=== PATIENT | male | born 1945 | race Caucasian/White ===

== ENCOUNTER → 2016-03-26 | Outpatient (CLI) | payer MEDICARE, BC ==
--- NOTE | 2016-03-26 15:10 | XR ---
EXAMINATION TYPE: XR chest 2V DATE OF EXAM: 03/26/2016 1:26 PM COMPARISON: NONE HISTORY: Preop TECHNIQUE: Frontal and lateral views of the chest are obtained. FINDINGS: There is no focal air space opacity, pleural effusion, or pneumothorax seen. The cardiac silhouette size is within normal limits. There is a slight spinal curvature. An azygos lobe is note d incidentally. The osseous structures are intact. IMPRESSION: No acute cardiopulmonary process.
== END | disposition home or self-care (01) ==
LOC: RADXRMAIN 13:13
PROVIDERS: ATTEND Family Medicine
DX: Z01.818 Encounter for other preprocedural examination (principal)
CPT/HCPCS: 71020

== ENCOUNTER 2017-12-22 05:36 | Inpatient (IN) | payer BC, MEDICARE ==
[2017-12-22] MEDS ORDERED: ONDANSETRON 4 MG/2 ML VIAL IVP STA (05:53)
[2017-12-22] MEDS ORDERED: MORPHINE SULFATE 4 MG/ML SYRINGE IV STA (06:00)
--- NOTE | 2017-12-22 06:04 | ED ---
Abdominal Pain HPI - General Chief Complaint: Abdominal Pain Stated Complaint: ABD/BACK PAIN Time Seen by Provider: 12/22/17 05:52 Source: patient, family Mode of arrival: wheelchair Limitations: no limitations - History of Present Illness Initial Comments: This patient is a 72-year-old man who presents to be evaluated for what he believes is food poisoning. He describes starting arrival 11 PM, the onset of abdominal pain that he describes as cramping and aching, constant, severe. He is also having some nausea. He believes that this is related to having eaten what he felt was a bad hamburger. MD Complaint: abdominal pain Onset/Timin -: hour(s) Location: diffuse Radiation: none Migration to: no migration Severity: severe Quality: cramping, aching Consistency: constant Improves With: nothing Worsens With: nothing Associated Symptoms: nausea - Related Data Home Medications Medication Instructions Recorded Confirmed Amiodarone [Cordarone] 200 mg PO DAILY 12/22/17 12/22/17 Apixaban [Eliquis] 5 mg PO BID 12/22/17 12/22/17 Atorvastatin [Lipitor] 40 mg PO HS 12/22/17 12/22/17 Docusate Sodium [Dok] 100 mg PO BID PRN 12/22/17 12/22/17 Finasteride [Proscar] 5 mg PO DAILY 12/22/17 12/22/17 Hydrocodone/Acetaminophen [[place] 1 tab PO Q3HR PRN 12/22/17 12/22/17 5-325] Ibuprofen 600 mg PO Q8H PRN 12/22/17 12/22/17 L.acidoph,Paracasei, B.lactis 1 cap PO DAILY 12/22/17 12/22/17 [Probiotic] Lisinopril [Zestril] 5 mg PO DAILY 12/22/17 12/22/17 Metoprolol Succinate (ER) [Toprol 25 mg PO DAILY 12/22/17 12/22/17 Xl] Multivitamin,Therapeutic [Thera] 1 tab PO DAILY 12/22/17 12/22/17 Omeprazole 40 mg PO DAILY 12/22/17 12/22/17 Tamsulosin [Flomax] 0.4 mg PO DAILY 12/22/17 12/22/17 Allergies Allergy/AdvReac Type Severity Reaction Status Date / Time adhesive tape Allergy Rash/Hives Verified 12/22/17 08:07 hydromorphone [From Dilaudid] AdvReac Confusion Verified 12/22/17 08:07 Review of Systems ROS Statement: Those systems with pertinent positive or pertinent negative responses have been documented in the HPI. ROS Other: All systems not noted in ROS Statement are negative. Constitutional: Denies: fever, chills Respiratory: Denies: cough, dyspnea Cardiovascular: Denies: chest pain, palpitations, orthopnea, edema, syncope Gastrointestinal: Reports: abdominal pain, nausea. Denies: vomiting, diarrhea, constipation, melena, hematochezia Genitourinary: Denies: dysuria, hematuria, testicular pain Musculoskeletal: Denies: back pain Skin: Denies: rash Neurological: Denies: weakness, numbness Past Medical History Past Medical History: GERD/Reflux, Hyperlipidemia, Prostate Disorder History of Any Multi-Drug Resistant Organisms: None Reported Past Surgical History: Back Surgery, Tonsillectomy Additional Past Surgical History / Comment(s): valve replacement, removal of ear cancer Past Psychological History: No Psychological Hx Reported Smoking Status: Never smoker Past Alcohol Use History: Rare Past Drug Use History: None Reported - Past Family History Mother Family Medical History: COPD Additional Family Medical History / Comment(s): Mother from COPD at the age of 78yrs. Father History Unknown: Yes Additional Family Medical History / Comment(s): Patient does not know any history on his father. Brother(s) Additional Family Medical History / Comment(s): patient has 2 brothers. One brother had 4 vessel CABG. One brother has history of melanoma and gallbladder disease. Patient has one sister with history of gallbladder disease. Patient is 5 children with no major medical problems. General Exam Limitations: no limitations General appearance: alert, in distress Head exam: Present: atraumatic, normocephalic Eye exam: Present: normal appearance. Absent: scleral icterus, conjunctival injection ENT exam: Present: mucous membranes dry Respiratory exam: Present: normal lung sounds bilaterally. Absent: respiratory distress, wheezes, rales, rhonchi, stridor Cardiovascular Exam: Present: regular rate, normal rhythm, normal heart sounds. Absent: systolic murmur, diastolic murmur, rubs, gallop GI/Abdominal exam: Present: distended, tenderness, diminished bowel sounds. Absent: guarding, rebound, rigid, mass, pulsatile mass, hernia Extremities exam: Present: normal inspection, normal capillary refill. Absent: pedal edema, calf tenderness Back exam: Present: normal inspection. Absent: CVA tenderness (R), CVA tenderness (L) Neurological exam: Present: alert Skin exam: Present: warm, dry, intact, normal color. Absent: rash Course Vital Signs 12/22/17 12/22/17 12/22/17 05:38 06:23 07:30 Temperature 98.3 F Pulse Rate 96 105 H 123 H Respiratory 18 16 24 Rate Blood Pressure 105/65 74/51 O2 Sat by Pulse 97 91 L Oximetry 12/22/17 12/22/17 12/22/17 08:00 08:50 08:55 Temperature Pulse Rate 111 H 116 H Respiratory 20 18 Rate Blood Pressure 110/60 94/55 100/61 O2 Sat by Pulse 95 97 Oximetry Medical Decision Making - Lab Data Result diagrams: 12/25/17 07:20 12/25/17 07:20 Lab Results 12/22/17 12/22/17 12/22/17 Range/Units 05:56 05:56 05:56 WBC 8.1 (3.8-10.6) k/uL RBC 3.90 L (4.30-5.90) m/uL Hgb 12.3 L (13.0-17.5) gm/dL Hct 39.2 (39.0-53.0) % MCV 100.6 H (80.0-100.0) fL MCH 31.5 (25.0-35.0) pg MCHC 31.3 (31.0-37.0) g/dL RDW 14.4 (11.5-15.5) % Plt Count 273 (150-450) k/uL Neutrophils % 86 % Lymphocytes % 11 % Monocytes % 2 % Eosinophils % 1 % Basophils % 0 % Neutrophils # 6.9 (1.3-7.7) k/uL Lymphocytes # 0.9 L (1.0-4.8) k/uL Monocytes # 0.1 (0-1.0) k/uL Eosinophils # 0.1 (0-0.7) k/uL Basophils # 0.0 (0-0.2) k/uL Hypochromasia Slight Macrocytosis Slight Sodium 139 (137-145) mmol/L Potassium 3.9 (3.5-5.1) mmol/L Chloride 101 (98-107) mmol/L Carbon Dioxide 27 (22-30) mmol/L Anion Gap 11 mmol/L BUN 15 (9-20) mg/dL Creatinine 0.83 (0.66-1.25) mg/dL Est GFR (CKD-EPI)AfAm >90 (>60 ml/min/1.73 sqM) Est GFR (CKD-EPI)NonAf 87 (>60 ml/min/1.73 sqM) Glucose 227 H (74-99) mg/dL Lactic Ac Sepsis Rflx Plasma Lactic Acid Parveen 3.3 H* (0.7-2.0) mmol/L Calcium 9.3 (8.4-10.2) mg/dL Total Bilirubin 0.8 (0.2-1.3) mg/dL AST 311 H (17-59) U/L ALT 151 H (21-72) U/L Alkaline Phosphatase 221 H (38-126) U/L Troponin I (0.000-0.034) ng/mL Total Protein 7.8 (6.3-8.2) g/dL Albumin 4.1 (3.5-5.0) g/dL Amylase 108 (30-110) U/L Lipase 828 H (23-300) U/L Urine Color Urine Appearance (Clear) Urine pH (5.0-8.0) Ur Specific [place] (1.001-1.035) Urine Protein (Negative) Urine Glucose (UA) (Negative) Urine Ketones (Negative) Urine Blood (Negative) Urine Nitrite (Negative) Urine Bilirubin (Negative) Urine Urobilinogen (<2.0) mg/dL Ur Leukocyte Esterase (Negative) Urine RBC (0-5) /hpf Urine WBC (0-5) /hpf Urine WBC Clumps (None) /hpf Urine Mucus (None) /hpf 12/22/17 12/22/17 12/22/17 Range/Units 05:56 06:44 08:40 WBC (3.8-10.6) k/uL RBC (4.30-5.90) m/uL Hgb (13.0-17.5) gm/dL Hct (39.0-53.0) % MCV (80.0-100.0) fL MCH (25.0-35.0) pg MCHC (31.0-37.0) g/dL RDW (11.5-15.5) % Plt Count (150-450) k/uL Neutrophils % % Lymphocytes % % Monocytes % % Eosinophils % % Basophils % % Neutrophils # (1.3-7.7) k/uL Lymphocytes # (1.0-4.8) k/uL Monocytes # (0-1.0) k/uL Eosinophils # (0-0.7) k/uL Basophils # (0-0.2) k/uL Hypochromasia Macrocytosis Sodium (137-145) mmol/L Potassium (3.5-5.1) mmol/L Chloride (98-107) mmol/L Carbon Dioxide (22-30) mmol/L Anion Gap mmol/L BUN (9-20) mg/dL Creatinine (0.66-1.25) mg/dL Est GFR (CKD-EPI)AfAm (>60 ml/min/1.73 sqM) Est GFR (CKD-EPI)NonAf (>60 ml/min/1.73 sqM) Glucose (74-99) mg/dL Lactic Ac Sepsis Rflx Y Plasma Lactic Acid Parveen (0.7-2.0) mmol/L Calcium (8.4-10.2) mg/dL Total Bilirubin (0.2-1.3) mg/dL AST (17-59) U/L ALT (21-72) U/L Alkaline Phosphatase (38-126) U/L Troponin I <0.012 (0.000-0.034) ng/mL Total Protein (6.3-8.2) g/dL Albumin (3.5-5.0) g/dL Amylase (30-110) U/L Lipase (23-300) U/L Urine Color Yellow Urine Appearance Cloudy (Clear) Urine pH 5.5 (5.0-8.0) Ur Specific [place] 1.018 (1.001-1.035) Urine Protein Trace H (Negative) Urine Glucose (UA) Negative (Negative) Urine Ketones Negative (Negative) Urine Blood Negative (Negative) Urine Nitrite Negative (Negative) Urine Bilirubin Negative (Negative) Urine Urobilinogen <2.0 (<2.0) mg/dL Ur Leukocyte Esterase Trace H (Negative) Urine RBC 3 (0-5) /hpf Urine WBC 8 H (0-5) /hpf Urine WBC Clumps Rare H (None) /hpf Urine Mucus Few H (None) /hpf - EKG Data -: EKG Interpreted by Me Interpretation: other (Paced rhythm) Disposition Clinical Impression: Abdominal pain, Pancreatitis, Cholecystitis Disposition: ADMITTED IP TO THIS HOSP Condition: Stable
[2017-12-22 06:25] LABS: Basophils % (A) 0 %; Eosinophils # (A) 0.1 k/uL (0-0.7); Eosinophils % (A) 1 %; HCT 39.2 % (39.0-53.0); HGB 12.3 gm/dL (13.0-17.5); Hypochromasia Slight; Lymphocytes # (A) 0.9 k/uL (1.0-4.8); Lymphocytes % (A) 11 %; MCH 31.5 pg (25.0-35.0); MCHC 31.3 g/dL (31.0-37.0); MCV 100.6 fL (80.0-100.0); Macrocytosis Slight; Monocytes # (A) 0.1 k/uL (0-1.0); Monocytes % (A) 2 %; Neutrophils # (A) 6.9 k/uL (1.3-7.7); Neutrophils % (A) 86 %; Platelet Count 273 k/uL (150-450); RDW 14.4 % (11.5-15.5); WBC 8.1 k/uL (3.8-10.6)
[2017-12-22 06:35] LABS: ALT 151 U/L (21-72); AST 311 U/L (17-59); Albumin 4.1 g/dL (3.5-5.0); Alkaline Phosphatase 221 U/L (38-126); Blood Urea Nitrogen 15 mg/dL (9-20); Calcium 9.3 mg/dL (8.4-10.2); Chloride 101 mmol/L (98-107); Glucose 227 mg/dL (74-99); Lipase 828 U/L (23-300); Potassium 3.9 mmol/L (3.5-5.1); Sodium 139 mmol/L (137-145); Total Bilirubin 0.8 mg/dL (0.2-1.3)
[2017-12-22 06:37] LABS: Amylase 108 U/L (30-110); Anion Gap 11 mmol/L; Carbon Dioxide 27 mmol/L (22-30); Total Protein 7.8 g/dL (6.3-8.2)
[2017-12-22] MEDS ORDERED: SODIUM CHLORIDE 0.9% 1,000 ML IV STA (07:27)
[2017-12-22] MEDS ORDERED: ONDANSETRON 4 MG/2 ML VIAL IVP PRN (07:52)
[2017-12-22] MEDS ORDERED: NALOXONE 0.4 MG/ML 1 ML VIAL IV PRN (07:52)
[2017-12-22] MEDS ORDERED: DOCUSATE 100 MG CAP PO PRN (07:54)
[2017-12-22] MEDS ORDERED: SODIUM CHLORIDE 0.9% 1,000 ML IV SCH (08:00)
[2017-12-22] MEDS ORDERED: AMPICILLIN-SULBACTAM 3 GM in SODIUM CHLORIDE 0.9% 100 ML IVPB STA (08:01)
--- NOTE | 2017-12-22 08:01 | XR ---
EXAMINATION TYPE: XR abdomen acute w cxr DATE OF EXAM: 12/22/2017 COMPARISON: NONE HISTORY: Pain TECHNIQUE: Single view of the chest and 2 views of the abdomen are submitted. FINDINGS: Single view of the chest fails demonstrate evidence for acute pulmonary disease. Scattered senescent parenchymal changes noted. Pacer device in place. There is no evidence for pneumoperitoneum. The bowel gas pattern is unremarkable as there is air throughout nondilated small and large bowel. No sizeable air fluid levels.No mass effects are seen. No unusual calcifications. IMPRESSION: 1. Unremarkable study.
--- NOTE | 2017-12-22 08:47 | US ---
EXAMINATION TYPE: US abdomen limited DATE OF EXAM: 12/22/2017 COMPARISON: NONE CLINICAL HISTORY: attention RUQ. epigastric pain, nausea EXAM MEASUREMENTS: Liver Length: 16.0 cm Gallbladder Wall: 0.5 cm CBD: 0.5 cm Right Kidney: 11.3 x 5.4 x 5.1 cm Technical limitations due to large amount of overlying bowel content Pancreas: Obscured by bowel gas Liver: best visualized intercostally, heterogeneous, hypoechoic area adjacent to GB = 5.1cm ??possib le focal sparing Gallbladder: multiple stones, thickened GB wall Evidence for sonographic Antonio's sign: no CBD: appears wnl Right Kidney: no evidence of hydronephrosis IMPRESSION: 1. Fatty liver with focal fatty sparing. 2. Cholelithiasis with thickened gallbladder wall. No evidence for pericholecystic fluid.
[2017-12-22] MEDS ORDERED: PANTOPRAZOLE 40 MG TABLET PO SCH (09:00)
[2017-12-22] MEDS ORDERED: APIXABAN 5 MG TAB PO SCH (09:00)
[2017-12-22 10:08] LABS: Appearance,Urine Cloudy (Clear); Bilirubin,Urine Negative (Negative); Blood,Urine Negative (Negative); Color,Urine Yellow; Glucose,Urine (UA) Negative (Negative); Ketones,Urine Negative (Negative); Leukocyte Esterase,Urine Trace (Negative); Mucus,Urine Few /hpf; Nitrite,Urine Negative (Negative); PH, Urine 5.5 (5.0-8.0); Protein,Urine Trace (Negative); RBC,Urine 3 /hpf (0-5); Specific Gravity,Urine 1.018 (1.001-1.035); Urobilinogen,Urine <2.0 mg/dL (<2.0); WBC,Urine 8 /hpf (0-5)
[2017-12-22] MEDS ORDERED: HEPARIN SODIUM,PORCINE 5,000 UNIT/ML 1 ML VIAL IV PRN (10:21)
[2017-12-22] MEDS ORDERED: SODIUM CHLORIDE 0.9% 1,000 ML IV ONE ×2 (10:37→11:00)
[2017-12-22] MEDS: HEPARIN SOD,PORK IN 0.45% NACL 25,000 UNIT in 0.45% NACL 1 500ML.BAG IV SCH (11:00)
[2017-12-22] MEDS: MORPHINE SULFATE 4 MG/ML SYRINGE IVP PRN ×4 (11:02→22:56)
[2017-12-22] MEDS: METOPROLOL SUCCINATE (ER) 25 MG TAB.ER.24H PO SCH (11:14)
[2017-12-22] MEDS: FINASTERIDE 5 MG TAB PO SCH (11:14)
[2017-12-22] MEDS: AMIODARONE 200 MG TAB PO SCH (11:14)
[2017-12-22] MEDS: TAMSULOSIN 0.4 MG CAP.ER.24H PO SCH (11:15)
[2017-12-22] MEDS: LISINOPRIL 5 MG TAB PO SCH (11:15)
[2017-12-22 11:22] LABS: INR 1.1 (<1.2); Partial Thromboplastin Time 23.6 sec (22.0-30.0); Prothrombin Time 10.7 sec (9.0-12.0)
[2017-12-22 11:27] LABS: Basophils % (A) 0 %; Eosinophils % (A) 0 %; HCT 35.7 % (39.0-53.0); HGB 11.3 gm/dL (13.0-17.5); Hypochromasia Slight; Lymphocytes # (A) 0.2 k/uL (1.0-4.8); Lymphocytes % (A) 2 %; MCH 31.8 pg (25.0-35.0); MCHC 31.8 g/dL (31.0-37.0); MCV 100.2 fL (80.0-100.0); Macrocytosis Slight; Mean Platelet Volume 7.3; Monocytes # (A) 0.5 k/uL (0-1.0); Monocytes % (A) 5 %; Neutrophils # (A) 9.5 k/uL (1.3-7.7); Neutrophils % (A) 92 %; Platelet Count 223 k/uL (150-450); RBC 3.56 m/uL (4.30-5.90); RDW 14.4 % (11.5-15.5); WBC 10.3 k/uL (3.8-10.6)
[2017-12-22] MEDS: LACTATED RINGERS 1,000 ML IV SCH ×4 (11:30→23:23)
--- NOTE | 2017-12-22 13:55 | P.CRDCN ---
History of Present Illness History of present illness: Mr. Vicente is a pleasant 72-year-old male past medical history significant for paroxysmal atrial fibrillation on terminal worker anticoagulaiton with eliquis, recent prosthetic aortic valve replacement 12/[address] Shah at [facility], recent pacemaker/AICD implantation secondary to sick sinus syndrome and cardiomyopathy, dyslipidemia and non-ischemic cardiomyopathy with EF 30-35% prior to valve replacement surgery. He follows with Dr. Bonilla out of [place]. We have been asked to see him in consultation on this admission due to recent valve replacement. He presented to the hospital early this morning with symptoms of abdominal and chest pain with nausea and vomiting after eating a hamburger last night. He denies shortness of breath, dizziness, palpitations, diaphoresis, PND or orhopnea. EKG indicates paced rhythm with underlying sinus mechanism. Abdominal ultrasound reveals evidence of cholelithiasis with thickened gallbladder wall. Laboratory data reviewed, hgb 11.3, plt 223, sodium 139, potassium 3.9, creatinine 0.83, AST 311, ALT 151, alk phos 221, lipase 828, cardiac enzymes negative x1 and lactic acid 2.2 down from 3.3 on admission. Blood pressure have been low 74/51-100/61. Heart rates ranging from 105-123. Current cardiac medications include toprol 25 mg daily, lisinopril 5 mg daily, atorvastatin 40 mg daily, eliquis 5 mg BID and amiodarone 200 mg daily. He has been started on heparin infusion for anticoagulation and eliquis has been held. Last dose was last night. He states he underwent cardiac catherization prior to his valve replacement and was told he had no blockages. Records are currently being requested. Review of Systems At the time of my exam: CONSTITUTIONAL: Denies fever. Denies chills. EYES: Denies blurred vision. Denies vision changes. Denies eye pain. EARS, NOSE, MOUTH & THROAT: Denies headache. Denies sore throat. Denies ear pain. CARDIOVASCULAR: Denies chest pain. Denies shortness of breath. Denies orthopnea. Denies PND. Denies palpitations. RESPIRATORY: Denies cough. GASTROINTESTINAL: Complains of abdominal pain. Denies diarrhea. Denies constipation. Complains of nausea. Denies vomiting. MUSCULOSKELETAL: Denies myalgias. INTEGUMENTARY: Denies pruitis. Denies rash. NEUROLOGIC: Denies numbness. Denies tingling. Denies weakness. PSYCHIATRIC: Denies anxiety. Denies depression. ENDOCRINE: Denies fatigue. Denies weight change. Denies polydipsia. Denies polyurina. GENITOURINARY: Denies burning, hematuria or urgency with micturation. HEMATOLOGIC: Denies history of anemia. Denies bleeding. Past Medical History Past Medical History: Atrial Fibrillation, Cancer, GERD/Reflux, Hyperlipidemia, Pneumonia, Prostate Disorder Additional Past Medical History / Comment(s): Pt states he was placed on new medications including blood pressure meds after his recent heart valve surgery but does not know if he has truley been hypertensive, he states d/t his valve disease his heart had to pump to hard/became "weak" and that he recently had an AICD/pacer inserted, chronic low back pain/better since back surgery, ear cancer removed, PLEASE USE PAPER TAPE AND IF POSSIBLE HYPOALLERGENIC ECG ELECTRODES. History of Any Multi-Drug Resistant Organisms: None Reported Past Surgical History: AICD, Back Surgery, Cardiac Valve Replacement, Pacemaker , Tonsillectomy Additional Past Surgical History / Comment(s): 11/10/17 AICD/pacer at [place], Aortic valve replacement, L4L5 with titanium cage/screws/plates, R ear cancer removal. Past Anesthesia/Blood Transfusion Reactions: No Reported Reaction Type of Cardiac Device: Permanent Pacemaker, AICD Device Placement Date:: 11/10/17 Smoking Status: Never smoker - Past Family History Mother Family Medical History: COPD Additional Family Medical History / Comment(s): Mother from COPD at the age of 78yrs. Father History Unknown: Yes Medications and Allergies Home Medications Medication Instructions Recorded Confirmed Type Amiodarone [Cordarone] 200 mg PO DAILY 12/22/17 12/22/17 History Apixaban [Eliquis] 5 mg PO BID 12/22/17 12/22/17 History Atorvastatin [Lipitor] 40 mg PO HS 12/22/17 12/22/17 History Docusate Sodium [Dok] 100 mg PO BID PRN 12/22/17 12/22/17 History Finasteride [Proscar] 5 mg PO DAILY 12/22/17 12/22/17 History Hydrocodone/Acetaminophen [[place] 1 tab PO Q3HR PRN 12/22/17 12/22/17 History 5-325] Ibuprofen 600 mg PO Q8H PRN 12/22/17 12/22/17 History L.acidoph,Paracasei, B.lactis 1 cap PO DAILY 12/22/17 12/22/17 History [Probiotic] Lisinopril [Zestril] 5 mg PO DAILY 12/22/17 12/22/17 History Metoprolol Succinate (ER) [Toprol 25 mg PO DAILY 12/22/17 12/22/17 History Xl] Multivitamin,Therapeutic [Thera] 1 tab PO DAILY 12/22/17 12/22/17 History Omeprazole 40 mg PO DAILY 12/22/17 12/22/17 History Tamsulosin [Flomax] 0.4 mg PO DAILY 12/22/17 12/22/17 History Allergies Allergy/AdvReac Type Severity Reaction Status Date / Time adhesive tape Allergy Rash/Hives Verified 12/22/17 08:07 hydromorphone [From Dilaudid] AdvReac Confusion Verified 12/22/17 08:07 Physical Exam Vitals: Vital Signs Temp Pulse Pulse Resp BP BP BP 12/22/17 11:57 99.3 F 105 H 18 87/52 86/56 12/22/17 09:34 98.4 F 107 H 20 120/68 12/22/17 08:55 100/61 12/22/17 08:50 116 H 18 94/55 12/22/17 08:00 111 H 20 110/60 12/22/17 07:30 123 H 24 74/51 12/22/17 06:23 105 H 16 12/22/17 05:38 98.3 F 96 18 105/65 Pulse Ox 12/22/17 11:57 96 12/22/17 09:34 97 12/22/17 08:55 12/22/17 08:50 97 12/22/17 08:00 95 12/22/17 07:30 91 L 12/22/17 06:23 12/22/17 05:38 97 Intake and Output 12/21/17 12/22/17 12/22/17 22:59 06:59 14:59 Other: Weight 81.647 kg Blood pressure 91/50 heart rate 105 afebrile maintaining oxygen saturation on nasal cannula GENERAL: This is a 72-year-old male in no apparent distress at the time of my examination. HEENT: Head is atraumatic, normocephalic. Pupils are equal, round. Sclerae anicteric. Conjunctivae are clear. Mucous membranes of the mouth are moist. Neck is supple. There is no jugular venous distention. No carotid bruit is heard. LUNGS: Faint bibasliar rales. No wheezes or rhonchi. No chest wall tenderness is noted on palpation or with deep breathing. Diminished bilaterally. HEART: Regular rate and rhythm without murmurs, rubs or gallops. S1 and S2 heard. Mid-sternal chest wound clean, dry and intact with no redness, swelling or drainage. Pacemaker site clean, dry and intact with no redness, swelling or drainage. ABDOMEN: Soft, mildly tender and guarded. Bowel sounds are heard. No organomegaly noted. Pt received morphine just prior to my exam. EXTREMITIES: No evidence of peripheral edema and no calf tenderness noted. VASCULAR: Radial and dorsalis pedis pulses palpated, no evidence of clubbing. NEUROLOGIC: Patient is awake, alert and oriented x3. Results 12/22/17 10:50 12/22/17 05:56 Cardiac Enzymes 12/22/17 12/22/17 Range/Units 05:56 05:56 AST 311 H (17-59) U/L Troponin I <0.012 (0.000-0.034) ng/mL Coagulation 12/22/17 Range/Units 10:50 PT 10.7 (9.0-12.0) sec APTT 23.6 (22.0-30.0) sec CBC 12/22/17 12/22/17 Range/Units 05:56 10:50 WBC 8.1 10.3 (3.8-10.6) k/uL RBC 3.90 L 3.56 L (4.30-5.90) m/uL Hgb 12.3 L 11.3 L (13.0-17.5) gm/dL Hct 39.2 35.7 L (39.0-53.0) % Plt Count 273 223 (150-450) k/uL Comprehensive Metabolic Panel 12/22/17 Range/Units 05:56 Sodium 139 (137-145) mmol/L Potassium 3.9 (3.5-5.1) mmol/L Chloride 101 (98-107) mmol/L Carbon Dioxide 27 (22-30) mmol/L BUN 15 (9-20) mg/dL Creatinine 0.83 (0.66-1.25) mg/dL Glucose 227 H (74-99) mg/dL Calcium 9.3 (8.4-10.2) mg/dL AST 311 H (17-59) U/L ALT 151 H (21-72) U/L Alkaline Phosphatase 221 H (38-126) U/L Total Protein 7.8 (6.3-8.2) g/dL Albumin 4.1 (3.5-5.0) g/dL Current Medications Generic Name Dose Route Start Last Admin Trade Name Freq PRN Reason Stop Dose Admin Hydrocodone Bitart/Acetaminophen 1 each 12/22/17 07:54 [place] 5-325 PO Q3HR PRN Pain Amiodarone HCl 200 mg 12/22/17 09:00 12/22/17 11:14 Cordarone PO 200 mg DAILY LEILANI Administration Docusate Sodium 100 mg 12/22/17 07:54 [place] PO BID PRN Constipation Finasteride 5 mg 12/22/17 09:00 12/22/17 11:14 Proscar PO 5 mg DAILY LEILANI Administration Heparin Sodium (Porcine) 0 unit 12/22/17 10:21 Heparin IV PER PROTOCOL PRN Low PTT Protocol Heparin Sodium/Sodium Chloride 500 mls @ 29.39 mls/hr 12/22/17 10:30 11:00 25,000 unit/ Sodium Chloride IV 18 units/kg/hr .Q17H1M LEILANI 29.39 mls/hr Administration Protocol 18 UNITS/KG/HR Lactated Ringer's 1,000 mls @ 250 mls/hr 12/22/17 10:45 12/22/17 11:30 Lactated Ringers IV 250 mls/hr .Q4H LEILANI Administration Lisinopril 5 mg 12/22/17 09:00 12/22/17 11:15 Zestril PO 5 mg DAILY LEILANI Administration Metoprolol Succinate 25 mg 12/22/17 09:00 12/22/17 11:14 Toprol Xl PO 25 mg DAILY LEILANI Administration Morphine Sulfate 4 mg 12/22/17 10:35 12/22/17 11:02 Morphine Sulfate (Inj) IVP 4 mg Q4HR PRN Administration Pain Naloxone HCl 0.2 mg 12/22/17 07:52 Narcan IV Q2M PRN Opioid Reversal Ondansetron HCl 4 mg 12/22/17 07:52 Zofran IVP Q8HR PRN Nausea And Vomiting Pantoprazole Sodium 40 mg 12/22/17 09:00 12/22/17 11:15 Protonix PO 40 mg [id number] LEILANI Administration Tamsulosin HCl 0.4 mg 12/22/17 09:00 12/22/17 11:15 Flomax PO 0.4 mg DAILY LEILANI Administration Intake and Output 12/21/17 12/22/17 12/22/17 22:59 06:59 14:59 Other: Weight 81.647 kg 12/22/17 10:50 12/22/17 05:56 Assessment and Plan Assessment: ASSESSMENT Acute cholecystitis Hypotension Recent aortic prosthetic aortic valve replacement for severe aortic stenosis Recent AICD/pacemaker insertion Non-ischemic cardiomyopathy, last documented EF 30-35% 10/02/2017 Lactic acidosis Paroxysmal atrial fibrillation currently maintaining sinus mechanism on terminal worker anticoagulation with Eliquis Dyslipidemia PLAN Eliquis has been held per primary care team for possible surgical intervention. Heparin infusion has been initiated as well by primary care to team for ongoing thromboembolic protection. Parameters have been added to toprol to hold for systolic blood pressure less than 90. Baseline chest xray shows no sign of effusion or infiltrate. Cautious fluid administration secondary to poor LV systolic function. Further recommendations to follow based on clinical course. Thank you kindly for this consultation. Nurse Practitioner note has been reviewed, I agree with a documented findings and plan of care. Patient was seen and examined.
--- NOTE | 2017-12-22 16:40 | P.HPIM ---
History of Present Illness H&P Date: 12/22/17 Chief Complaint: Abdominal pain This is a 72-year-old male patient of Dr. Preciado with past mental history of gastroesophageal reflux disease, paroxysmal atrial fibrillation on eliquis, nonischemic cardiomyopathy with EF of 30-35%, hyperlipidemia, enlarged prostate, aortic valve stenosis with recent aortic valve replacement done on December 04, pacemaker/AICD on December 11 , hypertension. Patient and family gives history that on December 04 he underwent open heart surgery for aortic valve replacement done by Dr. Shah and 7 days later on December 11 he underwent a pacemaker/AICD placement with Dr. Flaherty for sick sinus syndrome and cardiomyopathy.. He states he had onset of abdominal pain with cramping aching type that was constant and severe along with nausea. This started at 9 PM yesterday and was in the epigastric area. He was having dry heaves but no actual vomiting. He denies diarrhea. He denies any chest pain or shortness of breath, no palpitations. The pain became so severe by 5 in the morning he called his kids and he was brought into [facility] emergency center for evaluation. Abdominal x-ray was unremarkable. Abdominal ultrasound shows fatty liver with focal fatty sparing. Cholelithiasis with thickened gallbladder wall. No evidence of. Cholecystic fluid. White count was normal, blood sugar 227, initial lactic acid 3.3 followed by 2.2, lipase was elevated at 828 as well as liver function tests were elevated. Patient was admitted to the Medr floor. Eliquis has been placed on hold and patient started on heparin drip for possible surgical intervention. Patient is been seen and followed by cardiology. Review of Systems All systems: negative Constitutional: Reports poor appetite, Denies chills, Denies fatigue, Denies fever, Denies lethargy, Denies malaise, Denies weakness, Denies weight loss Eyes: denies blurred vision, denies pain Ears, nose, mouth and throat: Denies dysphagia, Denies headache, Denies hoarseness, Denies sore throat, Denies vertigo Cardiovascular: Denies chest pain, Denies decreased exercise tolerance, Denies dyspnea on exertion, Denies shortness of breath Respiratory: Denies congestion, Denies cough, Denies cough with sputum, Denies dyspnea, Denies excessive sputum, Denies hemoptysis, Denies home oxygen, Denies wheezing Gastrointestinal: Reports loss of appetite, Reports nausea, Denies abdominal pain, Denies diarrhea, Denies vomiting Genitourinary: Denies dysuria, Denies urinary frequency Musculoskeletal: Denies frequent falls, Denies gait dysfunction, Denies myalgias Integumentary: Denies pruritus, Denies rash Neurological: Denies change in speech, Denies confusion, Denies numbness, Denies weakness Psychiatric: Denies anxiety, Denies depression Endocrine: Denies fatigue, Denies weight change Past Medical History Past Medical History: Atrial Fibrillation, Cancer, GERD/Reflux, Hyperlipidemia, Pneumonia, Prostate Disorder Additional Past Medical History / Comment(s): Aortic valve stenosis status post aortic valve replacement, AICD/pacer inserted, chronic low back pain/better since back surgery, ear cancer removed, PLEASE USE PAPER TAPE AND IF POSSIBLE HYPOALLERGENIC ECG ELECTRODES. History of Any Multi-Drug Resistant Organisms: None Reported Past Surgical History: AICD, Back Surgery, Cardiac Valve Replacement, Pacemaker , Tonsillectomy Additional Past Surgical History / Comment(s): 11/10/17 AICD/pacer at [place], Aortic valve replacement, L4L5 with titanium cage/screws/plates, R ear cancer removal. Past Anesthesia/Blood Transfusion Reactions: No Reported Reaction Type of Cardiac Device: Permanent Pacemaker, AICD Device Placement Date:: 11/10/17 Smoking Status: Never smoker Additional Past Alcohol Use History / Comment(s): She is a lifelong nonsmoker. No illicit drug use. Patient drinks maybe 4 beers per year. - Past Family History Mother Family Medical History: COPD Additional Family Medical History / Comment(s): Mother from COPD at the age of 78yrs. Father History Unknown: Yes Additional Family Medical History / Comment(s): Patient does not know any history on his father. Brother(s) Additional Family Medical History / Comment(s): patient has 2 brothers. One brother had 4 vessel CABG. One brother has history of melanoma and gallbladder disease. Patient has one sister with history of gallbladder disease. Patient is 5 children with no major medical problems. Medications and Allergies Home Medications Medication Instructions Recorded Confirmed Type Amiodarone [Cordarone] 200 mg PO DAILY 12/22/17 12/22/17 History Apixaban [Eliquis] 5 mg PO BID 12/22/17 12/22/17 History Atorvastatin [Lipitor] 40 mg PO HS 12/22/17 12/22/17 History Docusate Sodium [Dok] 100 mg PO BID PRN 12/22/17 12/22/17 History Finasteride [Proscar] 5 mg PO DAILY 12/22/17 12/22/17 History Hydrocodone/Acetaminophen [[place] 1 tab PO Q3HR PRN 12/22/17 12/22/17 History 5-325] Ibuprofen 600 mg PO Q8H PRN 12/22/17 12/22/17 History L.acidoph,Paracasei, B.lactis 1 cap PO DAILY 12/22/17 12/22/17 History [Probiotic] Lisinopril [Zestril] 5 mg PO DAILY 12/22/17 12/22/17 History Metoprolol Succinate (ER) [Toprol 25 mg PO DAILY 12/22/17 12/22/17 History Xl] Multivitamin,Therapeutic [Thera] 1 tab PO DAILY 12/22/17 12/22/17 History Omeprazole 40 mg PO DAILY 12/22/17 12/22/17 History Tamsulosin [Flomax] 0.4 mg PO DAILY 12/22/17 12/22/17 History Allergies Allergy/AdvReac Type Severity Reaction Status Date / Time adhesive tape Allergy Rash/Hives Verified 12/22/17 08:07 hydromorphone [From Dilaudid] AdvReac Confusion Verified 12/22/17 08:07 Physical Exam Vitals: Vital Signs Temp Pulse Pulse Resp BP BP BP 12/22/17 12:56 91/50 85/51 12/22/17 11:57 99.3 F 105 H 18 87/52 86/56 12/22/17 09:34 98.4 F 107 H 20 120/68 12/22/17 08:55 100/61 12/22/17 08:50 116 H 18 94/55 12/22/17 08:00 111 H 20 110/60 12/22/17 07:30 123 H 24 74/51 12/22/17 06:23 105 H 16 12/22/17 05:38 98.3 F 96 18 105/65 Pulse Ox 12/22/17 12:56 12/22/17 11:57 96 12/22/17 09:34 97 12/22/17 08:55 12/22/17 08:50 97 12/22/17 08:00 95 12/22/17 07:30 91 L 12/22/17 06:23 12/22/17 05:38 97 Intake and Output 12/21/17 12/22/17 12/22/17 22:59 06:59 14:59 Other: Weight 81.647 kg Gen: This is a 72-year-old male. He is sitting up in bed appears to be in no acute distress. HEENT: Head is atraumatic, normocephalic. Pupils equal, round. Sclerae is anicteric. NECK: Supple. No JVD. No lymphadenopathy. No thyromegaly. LUNGS: Clear to auscultation. No wheezes or rhonchi. No intercostal retractions. HEART: Regular rate and rhythm. No murmur. Mid sternal wound is dry with no erythema or edema. No drainage. Pacemaker site is clean dry and intact. ABDOMEN: Soft. Bowel sounds are present. No masses. Mild epigastric tenderness. EXTREMITIES: No pedal edema. No calf tenderness. Dorsalis pedis palpable bilaterally. NEUROLOGICAL: Patient is awake, alert and oriented x3. Cranial nerves 2 through 12 are grossly intact. Results CBC & Chem 7: 12/22/17 10:50 12/22/17 05:56 Labs: Abnormal Lab Results - Last 24 Hours (Table) 12/22/17 12/22/17 12/22/17 Range/Units 05:56 05:56 05:56 RBC 3.90 L (4.30-5.90) m/uL Hgb 12.3 L (13.0-17.5) gm/dL Hct (39.0-53.0) % MCV 100.6 H (80.0-100.0) fL Neutrophils # (1.3-7.7) k/uL Lymphocytes # 0.9 L (1.0-4.8) k/uL Glucose 227 H (74-99) mg/dL Plasma Lactic Acid Parveen 3.3 H* (0.7-2.0) mmol/L AST 311 H (17-59) U/L ALT 151 H (21-72) U/L Alkaline Phosphatase 221 H (38-126) U/L Lipase 828 H (23-300) U/L Urine Protein (Negative) Ur Leukocyte Esterase (Negative) Urine WBC (0-5) /hpf Urine WBC Clumps (None) /hpf Urine Mucus (None) /hpf 12/22/17 12/22/17 12/22/17 Range/Units 08:40 09:48 10:50 RBC 3.56 L (4.30-5.90) m/uL Hgb 11.3 L (13.0-17.5) gm/dL Hct 35.7 L (39.0-53.0) % MCV 100.2 H (80.0-100.0) fL Neutrophils # 9.5 H (1.3-7.7) k/uL Lymphocytes # 0.2 L (1.0-4.8) k/uL Glucose (74-99) mg/dL Plasma Lactic Acid Parveen 2.2 H* (0.7-2.0) mmol/L AST (17-59) U/L ALT (21-72) U/L Alkaline Phosphatase (38-126) U/L Lipase (23-300) U/L Urine Protein Trace H (Negative) Ur Leukocyte Esterase Trace H (Negative) Urine WBC 8 H (0-5) /hpf Urine WBC Clumps Rare H (None) /hpf Urine Mucus Few H (None) /hpf Thrombosis Risk Factor Assmnt - DVT/VTE Prophylaxis DVT/VTE Prophylaxis: Pharmacologic Prophylaxis ordered - Choose All That Apply Any of the Below Risk Factors Present?: Yes Each Factor Represents 1 point: History of prior major surgery (<1month), Obesity (BMI >25) Other Risk Factors: Yes Each Risk Factor Represents 2 Points: Age 61-74 years, Malignancy Other congenital or acquired thrombophilia - If yes, enter type in comment: No Thrombosis Risk Factor Assessment Total Risk Factor Score: 6 Thrombosis Risk Factor Assessment Level: High Risk Assessment and Plan Plan: 1. Acute gallbladder pancreatitis. Continue IV fluids, nothing by mouth except for ice chips. Consult with GI and general surgery. Continue morphine for pain and Zofran as needed for nausea. 2. Recent aortic valve replacement for severe aortic stenosis done at [facility]. Cardiology consult appreciated. Eliquis changed to heparin drip for now anticipated possible surgery. 3. Paroxysmal atrial fibrillation currently in a sinus rhythm. Eliquis changed to heparin drip. 4. Recent AICD pacemaker insertion for sick sinus syndrome and nonischemic cardiomyopathy, stable. Cardiology consult appreciated. 5. Lactic acidosis with hypotension status post fluid resuscitation. 6. Hyperlipidemia. 7. Benign prostatic hypertrophy. Continue Flomax 0.4 mg daily. 8. Gastroesophageal reflux disease. Continue Protonix. 9. Hypertension. Continue lisinopril and metoprolol with parameters. 10. DVT prophylaxis. Heparin. Patient will be admitted to the hospital for a minimum of 2 night stay. Discharge plan: Most likely return home. Impression and plan of care have been directed as dictated by the signing physician. Nahed Casas nurse practitioner acting as scribe for signing physician.
--- NOTE | 2017-12-22 18:18 | P.GSCN ---
History of Present Illness Consult date: 12/22/17 Reason for Consult: Cholecystitis History of present illness: patient comes into the emergency department today with complaints of pain that began around 9:00 yesterday evening. Pain was diffuse in nature. He said it did radiate to both upper quadrants. He is unable to localize pain currently and states his pain has improved since the administration of Zofran and morphine. Patient was just discharged for aortic valve replacement at [facility]. He has not had a pain like this previously. Patient had an ultrasound showing gallstones with a thickened gallbladder wall. No CBD dilation was noted. Lactic acid was elevated at 3.3 and decreased to 2.2. Liver enzymes likewise elevated. Lipase elevated at 828. Patient is afebrile currently. No change in the color of his skin urine or stool. No rectal bleeding or melena. Appetite diminished. Again he does state he feels much better now than he did earlier today. Patient is on anticoagulation. GI has been consulted. Ultrasound of the liver also shows a 5 cm area of possible fatty liver. Review of Systems The patient denies any acute changes in vision or hearing, no dysphagia or odynophagia, no chest pain or shortness of breath, no dysuria or hematuria, no headache, no runny nose, no rectal bleeding or melena, no unexplained weight loss Past Medical History Past Medical History: Atrial Fibrillation, Cancer, GERD/Reflux, Hyperlipidemia, Pneumonia, Prostate Disorder Additional Past Medical History / Comment(s): Aortic valve stenosis status post aortic valve replacement, AICD/pacer inserted, chronic low back pain/better since back surgery, ear cancer removed, PLEASE USE PAPER TAPE AND IF POSSIBLE HYPOALLERGENIC ECG ELECTRODES. History of Any Multi-Drug Resistant Organisms: None Reported Past Surgical History: AICD, Back Surgery, Cardiac Valve Replacement, Pacemaker , Tonsillectomy Additional Past Surgical History / Comment(s): 11/10/17 AICD/pacer at [place], Aortic valve replacement, L4L5 with titanium cage/screws/plates, R ear cancer removal. Past Anesthesia/Blood Transfusion Reactions: No Reported Reaction Type of Cardiac Device: Permanent Pacemaker, AICD Device Placement Date:: 11/10/17 Smoking Status: Never smoker Additional Past Alcohol Use History / Comment(s): She is a lifelong nonsmoker. No illicit drug use. Patient drinks maybe 4 beers per year. - Past Family History Mother Family Medical History: COPD Additional Family Medical History / Comment(s): Mother from COPD at the age of 78yrs. Father History Unknown: Yes Additional Family Medical History / Comment(s): Patient does not know any history on his father. Brother(s) Additional Family Medical History / Comment(s): patient has 2 brothers. One brother had 4 vessel CABG. One brother has history of melanoma and gallbladder disease. Patient has one sister with history of gallbladder disease. Patient is 5 children with no major medical problems. Medications and Allergies Home Medications Medication Instructions Recorded Confirmed Type Amiodarone [Cordarone] 200 mg PO DAILY 12/22/17 12/22/17 History Apixaban [Eliquis] 5 mg PO BID 12/22/17 12/22/17 History Atorvastatin [Lipitor] 40 mg PO HS 12/22/17 12/22/17 History Docusate Sodium [Dok] 100 mg PO BID PRN 12/22/17 12/22/17 History Finasteride [Proscar] 5 mg PO DAILY 12/22/17 12/22/17 History Hydrocodone/Acetaminophen [[place] 1 tab PO Q3HR PRN 12/22/17 12/22/17 History 5-325] Ibuprofen 600 mg PO Q8H PRN 12/22/17 12/22/17 History L.acidoph,Paracasei, B.lactis 1 cap PO DAILY 12/22/17 12/22/17 History [Probiotic] Lisinopril [Zestril] 5 mg PO DAILY 12/22/17 12/22/17 History Metoprolol Succinate (ER) [Toprol 25 mg PO DAILY 12/22/17 12/22/17 History Xl] Multivitamin,Therapeutic [Thera] 1 tab PO DAILY 12/22/17 12/22/17 History Omeprazole 40 mg PO DAILY 12/22/17 12/22/17 History Tamsulosin [Flomax] 0.4 mg PO DAILY 12/22/17 12/22/17 History Allergies Allergy/AdvReac Type Severity Reaction Status Date / Time adhesive tape Allergy Rash/Hives Verified 12/22/17 08:07 hydromorphone [From Dilaudid] AdvReac Confusion Verified 12/22/17 08:07 Surgical - Exam Vital Signs Temp Pulse Resp BP Pulse Ox 98.3 F 96 18 105/65 97 12/22/17 05:38 12/22/17 05:38 12/22/17 05:38 12/22/17 05:38 12/22/17 05:38 Physical exam: General: Well-developed, well-nourished HEENT: Normocephalic, sclerae nonicteric Abdomen: Bilateral upper quadrant tenderness, nondistended Extremities: No edema Neuro: Alert and oriented Results - Labs 12/22/17 10:50 12/22/17 05:56 Abnormal Lab Results - Last 24 Hours (Table) 12/22/17 12/22/17 12/22/17 Range/Units 05:56 05:56 05:56 RBC 3.90 L (4.30-5.90) m/uL Hgb 12.3 L (13.0-17.5) gm/dL Hct (39.0-53.0) % MCV 100.6 H (80.0-100.0) fL Neutrophils # (1.3-7.7) k/uL Lymphocytes # 0.9 L (1.0-4.8) k/uL APTT (22.0-30.0) sec Glucose 227 H (74-99) mg/dL Plasma Lactic Acid Parveen 3.3 H* (0.7-2.0) mmol/L AST 311 H (17-59) U/L ALT 151 H (21-72) U/L Alkaline Phosphatase 221 H (38-126) U/L Lipase 828 H (23-300) U/L Urine Protein (Negative) Ur Leukocyte Esterase (Negative) Urine WBC (0-5) /hpf Urine WBC Clumps (None) /hpf Urine Mucus (None) /hpf 12/22/17 12/22/17 12/22/17 Range/Units 08:40 09:48 10:50 RBC 3.56 L (4.30-5.90) m/uL Hgb 11.3 L (13.0-17.5) gm/dL Hct 35.7 L (39.0-53.0) % MCV 100.2 H (80.0-100.0) fL Neutrophils # 9.5 H (1.3-7.7) k/uL Lymphocytes # 0.2 L (1.0-4.8) k/uL APTT (22.0-30.0) sec Glucose (74-99) mg/dL Plasma Lactic Acid Parveen 2.2 H* (0.7-2.0) mmol/L AST (17-59) U/L ALT (21-72) U/L Alkaline Phosphatase (38-126) U/L Lipase (23-300) U/L Urine Protein Trace H (Negative) Ur Leukocyte Esterase Trace H (Negative) Urine WBC 8 H (0-5) /hpf Urine WBC Clumps Rare H (None) /hpf Urine Mucus Few H (None) /hpf 12/22/17 Range/Units 16:42 RBC (4.30-5.90) m/uL Hgb (13.0-17.5) gm/dL Hct (39.0-53.0) % MCV (80.0-100.0) fL Neutrophils # (1.3-7.7) k/uL Lymphocytes # (1.0-4.8) k/uL APTT 89.0 H (22.0-30.0) sec Glucose (74-99) mg/dL Plasma Lactic Acid Parveen (0.7-2.0) mmol/L AST (17-59) U/L ALT (21-72) U/L Alkaline Phosphatase (38-126) U/L Lipase (23-300) U/L Urine Protein (Negative) Ur Leukocyte Esterase (Negative) Urine WBC (0-5) /hpf Urine WBC Clumps (None) /hpf Urine Mucus (None) /hpf Diabetes panel 12/22/17 Range/Units 05:56 Sodium 139 (137-145) mmol/L Potassium 3.9 (3.5-5.1) mmol/L Chloride 101 (98-107) mmol/L Carbon Dioxide 27 (22-30) mmol/L BUN 15 (9-20) mg/dL Creatinine 0.83 (0.66-1.25) mg/dL Glucose 227 H (74-99) mg/dL Calcium 9.3 (8.4-10.2) mg/dL AST 311 H (17-59) U/L ALT 151 H (21-72) U/L Alkaline Phosphatase 221 H (38-126) U/L Total Protein 7.8 (6.3-8.2) g/dL Albumin 4.1 (3.5-5.0) g/dL Calcium panel 12/22/17 Range/Units 05:56 Calcium 9.3 (8.4-10.2) mg/dL Albumin 4.1 (3.5-5.0) g/dL Pituitary panel 12/22/17 Range/Units 05:56 Sodium 139 (137-145) mmol/L Potassium 3.9 (3.5-5.1) mmol/L Chloride 101 (98-107) mmol/L Carbon Dioxide 27 (22-30) mmol/L BUN 15 (9-20) mg/dL Creatinine 0.83 (0.66-1.25) mg/dL Glucose 227 H (74-99) mg/dL Calcium 9.3 (8.4-10.2) mg/dL Adrenal panel 12/22/17 Range/Units 05:56 Sodium 139 (137-145) mmol/L Potassium 3.9 (3.5-5.1) mmol/L Chloride 101 (98-107) mmol/L Carbon Dioxide 27 (22-30) mmol/L BUN 15 (9-20) mg/dL Creatinine 0.83 (0.66-1.25) mg/dL Glucose 227 H (74-99) mg/dL Calcium 9.3 (8.4-10.2) mg/dL Total Bilirubin 0.8 (0.2-1.3) mg/dL AST 311 H (17-59) U/L ALT 151 H (21-72) U/L Alkaline Phosphatase 221 H (38-126) U/L Total Protein 7.8 (6.3-8.2) g/dL Albumin 4.1 (3.5-5.0) g/dL Assessment and Plan (1) Cholecystitis Narrative/Plan: Patient with elevated liver enzymes and lipase suggestive of gallstone pancreatitis. Ultrasound findings as it relates to the liver noted and Will order CT abdomen and pelvis at this time. Continue IV antibiotics. Keep nothing by mouth for now. Await GI evaluation. Repeat labs tomorrow. We'll follow closely. Current Visit: Yes Status: Acute Code(s): K81.9 - CHOLECYSTITIS, UNSPECIFIED SNOMED Code(s): 29660206
[2017-12-22] MEDS: ONDANSETRON 4 MG/2 ML VIAL IVP PRN (18:23)
[2017-12-22] MEDS: PIPERACILLIN-TAZOBACTAM 3.375 GM in DEXTROSE/WATER 1 50ML.BAG IVPB SCH ×2 (18:59→23:16)
[2017-12-22] MEDS ORDERED: ATORVASTATIN 40 MG TAB PO SCH (21:00)
[2017-12-23] MEDS: LACTATED RINGERS 1,000 ML IV SCH ×3 (03:23→11:45)
[2017-12-23] MEDS: MORPHINE SULFATE 4 MG/ML SYRINGE IVP PRN ×4 (03:39→16:36)
[2017-12-23] MEDS: ONDANSETRON 4 MG/2 ML VIAL IVP PRN ×4 (03:43→21:59)
[2017-12-23] MEDS: HEPARIN SOD,PORK IN 0.45% NACL 25,000 UNIT in 0.45% NACL 1 500ML.BAG IV SCH ×2 (05:58→20:03)
[2017-12-23] MEDS: PIPERACILLIN-TAZOBACTAM 3.375 GM in DEXTROSE/WATER 1 50ML.BAG IVPB SCH (07:12)
[2017-12-23] MEDS: FINASTERIDE 5 MG TAB PO SCH (07:48)
[2017-12-23] MEDS: PANTOPRAZOLE 40 MG/10 ML VIAL IVP SCH (07:48)
[2017-12-23] MEDS: TAMSULOSIN 0.4 MG CAP.ER.24H PO SCH (07:51)
[2017-12-23] MEDS: AMIODARONE 200 MG TAB PO SCH (07:51)
[2017-12-23] MEDS: METOPROLOL SUCCINATE (ER) 25 MG TAB.ER.24H PO SCH (07:51)
[2017-12-23] MEDS: LISINOPRIL 5 MG TAB PO SCH (07:52)
[2017-12-23 08:22] LABS: Basophils % (A) 0 %; Eosinophils # (A) 0.2 k/uL (0-0.7); Eosinophils % (A) 2 %; HCT 31.2 % (39.0-53.0); HGB 9.9 gm/dL (13.0-17.5); Hypochromasia Moderate; Lymphocytes # (A) 0.6 k/uL (1.0-4.8); Lymphocytes % (A) 7 %; MCH 31.7 pg (25.0-35.0); MCHC 31.5 g/dL (31.0-37.0); MCV 100.4 fL (80.0-100.0); Macrocytosis Slight; Monocytes # (A) 0.2 k/uL (0-1.0); Monocytes % (A) 3 %; Neutrophils # (A) 7.4 k/uL (1.3-7.7); Neutrophils % (A) 88 %; Platelet Count 179 k/uL (150-450); RBC 3.11 m/uL (4.30-5.90); RDW 14.5 % (11.5-15.5); WBC 8.4 k/uL (3.8-10.6)
[2017-12-23 08:30] LABS: ALT 229 U/L (21-72); AST 191 U/L (17-59); Albumin 2.9 g/dL (3.5-5.0); Alkaline Phosphatase 146 U/L (38-126); Amylase 76 U/L (30-110); Anion Gap 6 mmol/L; Blood Urea Nitrogen 16 mg/dL (9-20); Carbon Dioxide 26 mmol/L (22-30); Chloride 105 mmol/L (98-107); Glucose 89 mg/dL (74-99); Lipase 332 U/L (23-300); Potassium 3.8 mmol/L (3.5-5.1); Sodium 137 mmol/L (137-145); Total Bilirubin 2.4 mg/dL (0.2-1.3)
[2017-12-23] MEDS ORDERED: ACETAMINOPHEN TAB 325 MG TAB PO PRN (11:10)
[2017-12-23] MEDS: IOPAMIDOL-300 CONTRAST 30 ML VIAL (ORAL USE) PO PRN ×2 (11:18→11:51)
[2017-12-23] MEDS: MEROPENEM 2 GM in SODIUM CHLORIDE 0.9% 100 ML IVPB SCH ×3 (12:06→22:55)
--- NOTE | 2017-12-23 12:21 | P.CONS ---
History of Present Illness - Reason for Consult Consult date: 12/23/17 pancreatitis Requesting physician: Saul Hartley - Chief Complaint abdominal pain - History of Present Illness 72-year-old gentleman patient of Dr. Preciado recent aVR replacement/AICD for aortic stenosis mid-October at [facility] maintained on Eliquis, atrial fibrillation, GERD. Presents with acute abdominal pain night before last and the upper abdomen with chills no documented fevers. Admission white count 8.1. Hemoglobin 12.3. MCV 100.6. Platelet 273. INR 1.1. Lipase 828. Amylase 108. Total bilirubin 0.8. AST 311. ALT 151. AP 221. Lactic acid 3.3. Total bilirubin increased today 2.4. AST 191. ALT 229. AP 146. Ultrasound fatty liver, 5.1 cm hypoechoic area adjacent to the gallbladder possible focal sparing. CBD 0.5 cm. Pancreas obscured by gas. CT abdomen pelvis has been ordered for this afternoon. Patient is been seen by general surgery. No history of pancreatitis. No history of alcoholism. T-max 100.0. Receiving IV Merrem. Review of Systems Constitutional: Denies fever, chills, sweats, weight gain, or loss. HEENT: Negative for migraines, blurred vision or loss, earaches, drainage, tinnitus, oral mucosal lesions, dysphagia, or odynophagia. Cardiac: Negative for chest pain, arrhythmias, or palpitation. Respiratory: Negative for shortness of breath, hemoptysis, cough, or sputum production. Gastrointestinal: See HPI for pertinent findings. Genitourinary: Negative for hematuria, urgency, frequency, polyuria, dysuria, or penile discharge. Musculoskeletal: Negative for muscle aches, swelling, arthritis, and arthralgias. Neurologic: Negative for stroke or TIA. Endocrine: Negative for thyroid problems. Skin: Negative for rash or itching. Psychiatric: Negative history for depression and anxiety Past Medical History Past Medical History: Atrial Fibrillation, Cancer, GERD/Reflux, Hyperlipidemia, Pneumonia, Prostate Disorder Additional Past Medical History / Comment(s): Aortic valve stenosis status post aortic valve replacement, AICD/pacer inserted, chronic low back pain/better since back surgery, ear cancer removed, PLEASE USE PAPER TAPE AND IF POSSIBLE HYPOALLERGENIC ECG ELECTRODES. History of Any Multi-Drug Resistant Organisms: None Reported Past Surgical History: AICD, Back Surgery, Cardiac Valve Replacement, Pacemaker , Tonsillectomy Additional Past Surgical History / Comment(s): 11/10/17 AICD/pacer at [facility], Aortic valve replacement, L4L5 with titanium cage/screws/plates, R ear cancer removal. Past Anesthesia/Blood Transfusion Reactions: No Reported Reaction Type of Cardiac Device: Permanent Pacemaker, AICD Device Placement Date:: 11/10/17 Smoking Status: Never smoker Additional Past Alcohol Use History / Comment(s): She is a lifelong nonsmoker. No illicit drug use. Patient drinks maybe 4 beers per year. - Past Family History Mother Family Medical History: COPD Additional Family Medical History / Comment(s): Mother from COPD at the age of 78yrs. Father History Unknown: Yes Additional Family Medical History / Comment(s): Patient does not know any history on his father. Brother(s) Additional Family Medical History / Comment(s): patient has 2 brothers. One brother had 4 vessel CABG. One brother has history of melanoma and gallbladder disease. Patient has one sister with history of gallbladder disease. Patient is 5 children with no major medical problems. Medications and Allergies Home Medications Medication Instructions Recorded Confirmed Type Amiodarone [Cordarone] 200 mg PO DAILY 12/22/17 12/22/17 History Apixaban [Eliquis] 5 mg PO BID 12/22/17 12/22/17 History Atorvastatin [Lipitor] 40 mg PO HS 12/22/17 12/22/17 History Docusate Sodium [Dok] 100 mg PO BID PRN 12/22/17 12/22/17 History Finasteride [Proscar] 5 mg PO DAILY 12/22/17 12/22/17 History Hydrocodone/Acetaminophen [[place] 1 tab PO Q3HR PRN 12/22/17 12/22/17 History 5-325] Ibuprofen 600 mg PO Q8H PRN 12/22/17 12/22/17 History L.acidoph,Paracasei, B.lactis 1 cap PO DAILY 12/22/17 12/22/17 History [Probiotic] Lisinopril [Zestril] 5 mg PO DAILY 12/22/17 12/22/17 History Metoprolol Succinate (ER) [Toprol 25 mg PO DAILY 12/22/17 12/22/17 History Xl] Multivitamin,Therapeutic [Thera] 1 tab PO DAILY 12/22/17 12/22/17 History Omeprazole 40 mg PO DAILY 12/22/17 12/22/17 History Tamsulosin [Flomax] 0.4 mg PO DAILY 12/22/17 12/22/17 History Allergies Allergy/AdvReac Type Severity Reaction Status Date / Time adhesive tape Allergy Rash/Hives Verified 12/22/17 08:07 hydromorphone [From Dilaudid] AdvReac Confusion Verified 12/22/17 08:07 Physical Exam Vitals: Vital Signs Temp Pulse Resp BP BP Pulse Ox 12/23/17 06:34 100.0 F H 96 18 121/69 94 L 12/22/17 23:00 97.2 F L 94 18 112/59 95 12/22/17 17:23 92 108/62 12/22/17 16:00 16 12/22/17 14:09 98.4 F 96 16 91/58 96 12/22/17 12:56 91/50 85/51 Intake and Output 12/22/17 12/23/17 12/23/17 22:59 06:59 14:59 Intake Total 2239.076 265.594 63.66 Balance 2239.076 265.594 63.66 Intake: Intake, IV Titration 2239.076 265.594 63.66 Amount Heparin Sod,Pork in 0.45% 189.076 265.594 63.66 NaCl 25,000 unit In 0.45 % NaCl 1 500ml.bag @ 18 UNITS/KG/HR 29.39 mls/hr IV .Q17H1M LEILANI Rx#: [id number] Lactated Ringers 1,000 ml 1000 @ 250 mls/hr IV .Q4H LEILANI Rx#:[id number] Piperacillin-Tazobactam 3 50 .375 gm In Dextrose/Water 1 50ml.bag @ 12.5 mls/hr IVPB Q8HR LEILANI Rx#: [id number] Sodium Chloride 0.9% 1, 1000 000 ml @ 999 mls/hr IV . Q1H1M ONE Rx#:[id number] Other: # Voids 1 1 General appearance: The patient is alert, oriented, in no acute distress. HET: Head is normocephalic and atraumatic. Pupils are equal and reactive. Oropharynx is clear without lesions. Neck: Supple without lymphadenopathy. Trachea midline. Heart: S1 S2. Regular rate and rhythm. Lungs: No crackles or wheezes are heard. Abdomen: Soft, bilateral upper tenderness, nondistended with bowel sounds. No peritoneal signs. No palpable organomegaly or masses. Extremities: Normal skin color and turgor. No cyanosis, rash, ulceration, clubbing, or edema. Radial and pedal pulses are 2/4 bilaterally. Neurological: No focal deficits. Strength and sensation are grossly intact. Results CBC & Chem 7: 12/24/17 10:26 12/24/17: Labs: Abnormal Lab Results - Last 24 Hours (Table) 12/22/17 12/22/17 12/22/17 Range/Units 16:42 19:07 22:07 RBC (4.30-5.90) m/uL Hgb (13.0-17.5) gm/dL Hct (39.0-53.0) % MCV (80.0-100.0) fL Lymphocytes # (1.0-4.8) k/uL APTT 89.0 H 150.6 H* (22.0-30.0) sec Plasma Lactic Acid Parveen 2.1 H* (0.7-2.0) mmol/L Calcium (8.4-10.2) mg/dL Total Bilirubin (0.2-1.3) mg/dL AST (17-59) U/L ALT (21-72) U/L Alkaline Phosphatase (38-126) U/L Total Protein (6.3-8.2) g/dL Albumin (3.5-5.0) g/dL Lipase (23-300) U/L 12/23/17 12/23/17 12/23/17 Range/Units 08:05 08:05 08:05 RBC 3.11 L (4.30-5.90) m/uL Hgb 9.9 L (13.0-17.5) gm/dL Hct 31.2 L (39.0-53.0) % MCV 100.4 H (80.0-100.0) fL Lymphocytes # 0.6 L (1.0-4.8) k/uL APTT 100.6 H* (22.0-30.0) sec Plasma Lactic Acid Parveen (0.7-2.0) mmol/L Calcium 8.0 L (8.4-10.2) mg/dL Total Bilirubin 2.4 H (0.2-1.3) mg/dL AST 191 H (17-59) U/L ALT 229 H (21-72) U/L Alkaline Phosphatase 146 H (38-126) U/L Total Protein 6.0 L (6.3-8.2) g/dL Albumin 2.9 L (3.5-5.0) g/dL Lipase 332 H (23-300) U/L Microbiology - Last 24 Hours (Table) 12/22/17 06:02 Blood Culture - Final Blood 12/22/17 06:02 Blood Culture Gram Stain - Preliminary Blood Blood Culture - Preliminary Gram Neg Bacilli CT scan - abdomen: pending US - abdomen: report reviewed (Dr. Alford) Assessment and Plan (1) Pancreatitis Narrative/Plan: 72-year-old male admitted with acute upper abdominal pain with elevated lipase transaminases with radiographic imaging reporting cholelithiasis suspect acute biliary pancreatitis possible cholecystitis. Additionally per ultrasound 5.1 cm hypoechoic area seen near the gallbladder possible focal sparing. Increased total bilirubin today possible evolving choledocholithiasis cannot be excluded. Current Visit: Yes Status: Acute Code(s): K85.90 - ACUTE PANCREATITIS WITHOUT NECROSIS OR INFECTION, UNSP SNOMED Code(s): 93651521 (2) S/P AVR Current Visit: Yes Status: Acute Code(s): Z95.2 - PRESENCE OF PROSTHETIC HEART VALVE SNOMED Code(s): 2929898712764 Plan: 1. CT abdomen and pelvis to further characterize 5.1 cm hypoechoic area seen near the gallbladder as well as biliary tree. If liver function tests continue to worsen without evidence of biliary duct/choledocholithiasis pathology on CT imaging will recommend ERCP. should not a candidate for MRCP secondary to AICD insertion. 2. Nothing by mouth except medications. IV hydration. IV antibiotics. GI prophylaxis. Hepatitis screen requested. 3. General surgery following. We'll follow closely with you. Thank you for this kind referral and the opportunity to participate in the care of your patient. This consultation was discussed with Dr. Alford. The impression and plan of care have been directed as dictated.
--- NOTE | 2017-12-23 13:15 | XR ---
EXAMINATION TYPE: XR chest 2V DATE OF EXAM: 12/23/2017 COMPARISON: 03/26/2016 TECHNIQUE: PA and lateral views submitted. HISTORY: Shortness of breath FINDINGS: Cardiac device and postsurgical changes are seen. There is bilateral consolidation and small right ef fusion. No overt failure or pneumothorax. Azygous lobe and fissure noted. IMPRESSION: 1. Bilateral consolidation and small pleural effusion. No overt failure.
--- NOTE | 2017-12-23 13:44 | CT ---
EXAMINATION TYPE: CT abdomen pelvis w con DATE OF EXAM: 12/23/2017 COMPARISON: Correlation ultrasound 12/22/2017 HISTORY: 72-year-old male Right upper quadrant pain. TECHNIQUE: Contiguous axial scanning of the abdomen and pelvis following administration of 100 ml Iso mckenna 300 IV contrast. Delayed images through the kidneys and coronal/sagittal reconstructions perform ed. CT DLP: 1002.1 mGycm Automated exposure control for dose reduction was used. FINDINGS: Pacer leads are present. Heart borderline enlarged. No pericardial effusion. There is a trace right pleural effusion with prominent adjacent atelectasis versus consolidation at t he right base. Strandy and dependent atelectasis at the left base. Liver measures approximately 20 cm craniocaudal. There is slight heterogeneous density and decreased attenuation as compared to the splenoportal venous phase suggesting fatty infiltration. Some fatty sp aring along the gallbladder fossa. Portal venous system is patent. No biliary ductal dilatation. Gallbladder is borderline to mildly hydropic and 4.0 cm wide with layering sludge/gravel. Calcified robyn hepatic and portacaval lymph nodes suggest prior granulomatous disease. Adrenal glands, spleen, left kidney, and pancreas appear within normal limits. 2.4 cm cyst medial upp er pole right kidney. Additional subcentimeter hypodensity lateral mid pole too small for accurate CT characterization, likely cyst. There is strandy edema tracking down the right side of the abdomen and right retroperitoneum. No dilated small bowel or free air. Normal appendix. Mild overall stool burden with sigmoid diverticulosis. No pericolonic inflammatory c hange. Postsurgical scar along the right inguinal region with some surgical clips in this region. Difficult to exclude a 2.1 cm fluid collection adjacent to the common femoral bifurcation, axial image 76. Smal l amount of pelvic ascites. Bladder is urine distended. Central prosthetic calcifications. No pelvic lymphadenopathy seen. Bones: Mild degenerative changes at the hips. Degenerated levoconvex scoliosis with L4-L5 posterior l umbar fusion. IMPRESSION: 1. Hepatomegaly (approximately 20 cm) with hepatic steatosis. Correlate with LFTs, lipid profile, and patient risk factors. 2. Gallbladder is borderline to mildly hydropic with layering sludge or gravel. There is also mild ed maureen tracking down the right side of the abdomen and accumulating in the pelvis. If concern for early acute cholecystitis, follow-up ultrasound or HIDA scan. 3. Some scarring and inflammation in the right inguinal region with surgical clips and apparent 2.1 c m fluid collection just anterior to the common femoral bifurcation, possible postoperative seroma or chronic hematoma. Infective fluid can be excluded clinically. Query time since the patient's procedur e. 4. Trace right pleural effusion. Adjacent atelectasis and/or consolidation. Correlate with patient's symptoms to exclude pneumonia.
--- NOTE | 2017-12-23 14:31 | P.PN ---
Subjective Mr. Vicente is seen and examined resting comfortably in bed. He states his pain has greatly improved since admission secondary to receiving IV morphine. He denies any symptoms of chest pain, shortness of breath, dizziness or palpitations. He has been seen by surgical services and is awaiting CT of his abdomen as well as GI consultation. Laboratory data reviewed, hgb 9.9 down from 11.3 on admission probably secondary to dilution, plt 179, sodium 137, potassium 3.8, creatinine 0.9, lactic acid 0.9, total bilirubin 2.4, AST 191, ALT 229, alk phos 146, lipase 332, blood cultures positive for gram negative bacilli. Blood pressure 121/69 heart rate 96 temperature of 100F and maintaining oxygen saturation on nasal cannula. Infectious disease has been consulted for positive blood cultures. He is currently maintained on IV antibiotics, IV heparin infusion for thromboembolic protection. Telemetry tracings indicate sinus mechanism. Records from [place] have been reviewed. Pacemaker was placed secondary to complete heart block noted post surgery. THOMPSON revealed severe aortic stenosis with EF 25-30%. Catheterization was revealed normal coronary arteries. Objective - Vital Signs Vital signs: Vital Signs Temp 100.0 F H 12/23/17 06:34 Pulse 96 12/23/17 06:34 Resp 18 12/23/17 06:34 BP 121/69 12/23/17 06:34 Pulse Ox 94 L 12/23/17 06:34 Intake & Output 12/22/17 12/23/17 12/23/17 18:59 06:59 18:59 Intake Total 2189.076 315.594 63.66 Balance 2189.076 315.594 63.66 Intake: Intake, IV Titration 2189.076 315.594 63.66 Amount Heparin Sod,Pork in 0.45% 189.076 265.594 63.66 NaCl 25,000 unit In 0.45 % NaCl 1 500ml.bag @ 18 UNITS/KG/HR 29.39 mls/hr IV .Q17H1M LE[facility] Rx#: [id number] Lactated Ringers 1,000 ml 1000 @ 250 mls/hr IV .Q4H LEIL[facility] Rx#:[id number] Piperacillin-Tazobactam 3 50 .375 gm In Dextrose/Water 1 50ml.bag @ 12.5 mls/hr IVPB Q8HR LEIL[facility] Rx#: [id number] Sodium Chloride 0.9% 1, 1000 000 ml @ 999 mls/hr IV . Q1H1M ONE Rx#:[id number] Other: # Voids 2 1 - Exam GENERAL: Well-appearing, well-nourished and in no acute distress. NECK: Supple without JVD or thyromegaly. LUNGS: Breath sounds clear to auscultation bilaterally. Respiration equal and unlabored. No wheezes, rales or rhonchi. HEART: Regular rate and rhythm without murmurs, rubs or gallops. S1 and S2 heard. Mid-sternal chest wound clean, dry and intact with no redness, swelling or drainage. Pacemaker site clean, dry and intact with no redness, swelling or drainage. EXTREMITIES: Normal range of motion, no edema. No clubbing or cyanosis. Peripheral pulses intact. - Labs CBC & Chem 7: 12/23/17 08:05 12/23/17 08:05 Labs: Abnormal Lab Results - Last 24 Hours (Table) 12/22/17 12/22/17 12/22/17 Range/Units 09:48 10:50 16:42 RBC 3.56 L (4.30-5.90) m/uL Hgb 11.3 L (13.0-17.5) gm/dL Hct 35.7 L (39.0-53.0) % MCV 100.2 H (80.0-100.0) fL Neutrophils # 9.5 H (1.3-7.7) k/uL Lymphocytes # 0.2 L (1.0-4.8) k/uL APTT 89.0 H (22.0-30.0) sec Plasma Lactic Acid Parveen 2.2 H* (0.7-2.0) mmol/L Calcium (8.4-10.2) mg/dL Total Bilirubin (0.2-1.3) mg/dL AST (17-59) U/L ALT (21-72) U/L Alkaline Phosphatase (38-126) U/L Total Protein (6.3-8.2) g/dL Albumin (3.5-5.0) g/dL Lipase (23-300) U/L 12/22/17 12/22/17 12/23/17 Range/Units 19:07 22:07 08:05 RBC 3.11 L (4.30-5.90) m/uL Hgb 9.9 L (13.0-17.5) gm/dL Hct 31.2 L (39.0-53.0) % MCV 100.4 H (80.0-100.0) fL Neutrophils # (1.3-7.7) k/uL Lymphocytes # 0.6 L (1.0-4.8) k/uL APTT 150.6 H* (22.0-30.0) sec Plasma Lactic Acid Parveen 2.1 H* (0.7-2.0) mmol/L Calcium (8.4-10.2) mg/dL Total Bilirubin (0.2-1.3) mg/dL AST (17-59) U/L ALT (21-72) U/L Alkaline Phosphatase (38-126) U/L Total Protein (6.3-8.2) g/dL Albumin (3.5-5.0) g/dL Lipase (23-300) U/L 12/23/17 12/23/17 Range/Units 08:05 08:05 RBC (4.30-5.90) m/uL Hgb (13.0-17.5) gm/dL Hct (39.0-53.0) % MCV (80.0-100.0) fL Neutrophils # (1.3-7.7) k/uL Lymphocytes # (1.0-4.8) k/uL APTT 100.6 H* (22.0-30.0) sec Plasma Lactic Acid Parveen (0.7-2.0) mmol/L Calcium 8.0 L (8.4-10.2) mg/dL Total Bilirubin 2.4 H (0.2-1.3) mg/dL AST 191 H (17-59) U/L ALT 229 H (21-72) U/L Alkaline Phosphatase 146 H (38-126) U/L Total Protein 6.0 L (6.3-8.2) g/dL Albumin 2.9 L (3.5-5.0) g/dL Lipase 332 H (23-300) U/L Microbiology - Last 24 Hours (Table) 12/22/17 06:02 Blood Culture - Final Blood 12/22/17 06:02 Blood Culture Gram Stain - Preliminary Blood Blood Culture - Preliminary Gram Neg Bacilli Assessment and Plan Assessment: ASSESSMENT Acute cholecystitis, surgery is following. Currently awaiting CT abdomen/pelvis Acute pancreatitis, improving Hypotension, improved. 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 Heparin infusion has been initiated as well by primary care to team for ongoing thromboembolic protection. Discontinue amiodarone. Repeat 2D echocardiogram and doppler study to assess cardiac structure and function. Further recommendations to follow based on clinical course. Nurse Practitioner note has been reviewed, I agree with a documented findings and plan of care. Patient was seen and examined.
--- NOTE | 2017-12-23 15:03 | P.PN ---
Subjective Progress Note Date: 12/23/17 This is a 72-year-old male patient of Dr. Preciado with past mental history of gastroesophageal reflux disease, paroxysmal atrial fibrillation on eliquis, nonischemic cardiomyopathy with EF of 30-35%, hyperlipidemia, enlarged prostate, aortic valve stenosis with recent aortic valve replacement done on December 04, pacemaker/AICD on December 11 , hypertension. Patient and family gives history that on December 04 he underwent open heart surgery for aortic valve replacement done by Dr. Shah and 7 days later on December 11 he underwent a pacemaker/AICD placement with Dr. Flaherty for sick sinus syndrome and cardiomyopathy.. He states he had onset of abdominal pain with cramping aching type that was constant and severe along with nausea. This started at 9 PM yesterday and was in the epigastric area. He was having dry heaves but no actual vomiting. He denies diarrhea. He denies any chest pain or shortness of breath, no palpitations. The pain became so severe by 5 in the morning he called his kids and he was brought into [facility] emergency center for evaluation. Abdominal x-ray was unremarkable. Abdominal ultrasound shows fatty liver with focal fatty sparing. Cholelithiasis with thickened gallbladder wall. No evidence of. Cholecystic fluid. White count was normal, blood sugar 227, initial lactic acid 3.3 followed by 2.2, lipase was elevated at 828 as well as liver function tests were elevated. [facility]. Eliquis has been placed on hold and patient started on heparin drip for possible surgical intervention. Patient is been seen and followed by cardiology. 12/23: Due to fluid overload, IV fluids decreased to KVO. Incentive spirometry and chest x-ray ordered. Patient has been seen by general surgery with plan for CT of the abdomen and pelvis this afternoon which revealed hepatomegaly with hepatic steatosis. Borderli. Currently pain is controlled. Consult with Dr. Pérez for gram-negative bacteremia and antibiotics have been changed to meropenem. Temperature max has been 100.0. White count is normal, repeat lactic acid 1.3, liver function tests are elevated. Lipase is much improved to 332. Patient remains nothing by mouth but would like to start eating. Maybe by tomorrow diet can be started. Patient is followed by GI as well. Acute hepatitis panel ordered. Objective - Vital Signs Vital signs: Vital Signs Temp 100.0 F H 12/23/17 06:34 Pulse 96 12/23/17 06:34 Resp 18 12/23/17 06:34 BP 121/69 12/23/17 06:34 Pulse Ox 94 L 12/23/17 06:34 Intake & Output 12/22/17 12/23/17 12/23/17 18:59 06:59 18:59 Intake Total 2189.076 315.594 63.66 Balance 2189.076 315.594 63.66 Intake: Intake, IV Titration 2189.076 315.594 63.66 Amount Heparin Sod,Pork in 0.45% 189.076 265.594 63.66 NaCl 25,000 unit In 0.45 % NaCl 1 500ml.bag @ 18 UNITS/KG/HR 29.39 mls/hr IV .Q17H1M [facility] Rx#: [id number] Lactated Ringers 1,000 ml 1000 @ 250 mls/hr IV .Q4H LEIL[facility] Rx#:[id number] Piperacillin-Tazobactam 3 50 .375 gm In Dextrose/Water 1 50ml.bag @ 12.5 mls/hr IVPB Q8HR [facility] Rx#: [id number] Sodium Chloride 0.9% 1, 1000 000 ml @ 999 mls/hr IV . Q1H1M ONE Rx#:[id number] Other: # Voids 2 1 - Exam Gen: This is a 72-year-old male. He is sitting up in bed appears to be in no acute distress. HEENT: Head is atraumatic, normocephalic. Pupils equal, round. Sclerae is anicteric. NECK: Supple. No JVD. No lymphadenopathy. No thyromegaly. LUNGS: Clear to auscultation. No wheezes or rhonchi. No intercostal retractions. HEART: Regular rate and rhythm. No murmur. Mid sternal wound is dry with no erythema or edema. No drainage. Pacemaker site is clean dry and intact. ABDOMEN: Soft. Bowel sounds are present. No masses. Mild epigastric tenderness. EXTREMITIES: No pedal edema. No calf tenderness. Dorsalis pedis palpable bilaterally. NEUROLOGICAL: Patient is awake, alert and oriented x3. Cranial nerves 2 through 12 are grossly intact. - Labs CBC & Chem 7: 12/23/17 08:05 12/23/17 08:05 Labs: Abnormal Lab Results - Last 24 Hours (Table) 12/22/17 12/22/17 12/22/17 Range/Units 10:50 16:42 19:07 RBC 3.56 L (4.30-5.90) m/uL Hgb 11.3 L (13.0-17.5) gm/dL Hct 35.7 L (39.0-53.0) % MCV 100.2 H (80.0-100.0) fL Neutrophils # 9.5 H (1.3-7.7) k/uL Lymphocytes # 0.2 L (1.0-4.8) k/uL APTT 89.0 H (22.0-30.0) sec Plasma Lactic Acid Parveen 2.1 H* (0.7-2.0) mmol/L Calcium (8.4-10.2) mg/dL Total Bilirubin (0.2-1.3) mg/dL AST (17-59) U/L ALT (21-72) U/L Alkaline Phosphatase (38-126) U/L Total Protein (6.3-8.2) g/dL Albumin (3.5-5.0) g/dL Lipase (23-300) U/L 12/22/17 12/23/17 12/23/17 Range/Units 22:07 08:05 08:05 RBC 3.11 L (4.30-5.90) m/uL Hgb 9.9 L (13.0-17.5) gm/dL Hct 31.2 L (39.0-53.0) % MCV 100.4 H (80.0-100.0) fL Neutrophils # (1.3-7.7) k/uL Lymphocytes # 0.6 L (1.0-4.8) k/uL APTT 150.6 H* (22.0-30.0) sec Plasma Lactic Acid Parveen (0.7-2.0) mmol/L Calcium 8.0 L (8.4-10.2) mg/dL Total Bilirubin 2.4 H (0.2-1.3) mg/dL AST 191 H (17-59) U/L ALT 229 H (21-72) U/L Alkaline Phosphatase 146 H (38-126) U/L Total Protein 6.0 L (6.3-8.2) g/dL Albumin 2.9 L (3.5-5.0) g/dL Lipase 332 H (23-300) U/L 12/23/17 Range/Units 08:05 RBC (4.30-5.90) m/uL Hgb (13.0-17.5) gm/dL Hct (39.0-53.0) % MCV (80.0-100.0) fL Neutrophils # (1.3-7.7) k/uL Lymphocytes # (1.0-4.8) k/uL APTT 100.6 H* (22.0-30.0) sec Plasma Lactic Acid Parveen (0.7-2.0) mmol/L Calcium (8.4-10.2) mg/dL Total Bilirubin (0.2-1.3) mg/dL AST (17-59) U/L ALT (21-72) U/L Alkaline Phosphatase (38-126) U/L Total Protein (6.3-8.2) g/dL Albumin (3.5-5.0) g/dL Lipase (23-300) U/L Microbiology - Last 24 Hours (Table) 12/22/17 06:02 Blood Culture - Final Blood 12/22/17 06:02 Blood Culture Gram Stain - Preliminary Blood Blood Culture - Preliminary Gram Neg Bacilli Assessment and Plan Plan: 1. Acute gallbladder pancreatitis with gram-negative bacteremia. Continue IV fluids, nothing by mouth except for ice chips. Consult with GI and general surgery. Continue morphine for pain and Zofran as needed for nausea. Consult with Dr. Pérez and antibiotics have been changed to meropenem. CAT scan as above. Patient remains nothing by mouth but may be advanced by tomorrow. Acute hepatitis panel ordered by GI. 2. Recent aortic valve replacement for severe aortic stenosis done at [facility]. Cardiology consult appreciated. Eliquis changed to heparin drip for now anticipated possible surgery. 3. Paroxysmal atrial fibrillation currently in a sinus rhythm. Eliquis changed to heparin drip. 4. Recent AICD pacemaker insertion for sick sinus syndrome and nonischemic cardiomyopathy, stable. Cardiology consult appreciated. 5. Lactic acidosis with hypotension status post fluid resuscitation. 6. Hyperlipidemia. 7. Benign prostatic hypertrophy. Continue Flomax 0.4 mg daily. 8. Gastroesophageal reflux disease. Continue Protonix. 9. Hypertension. Continue lisinopril and metoprolol with parameters. 10. DVT prophylaxis. Heparin. Discharge plan: Most likely return home. Impression and plan of care have been directed as dictated by the signing physician. Nahed Casas nurse practitioner acting as scribe for signing physician.
--- NOTE | 2017-12-23 15:05 | P.PN ---
<Betty Gale Lara - Last Filed: 12/23/17 14:52> Subjective Progress Note Date: 12/23/17 Very pleasant 72-year-old male seen at the bedside. Being followed by surgical service for acute abdominal pain . Patient states the pains bilateral upper abdomen. States the pain has significantly improved just received morphine for pain. Patient denies having prior episodes of this type pain. Had an ultrasound did show gallstones with thickening of the gallbladder wall. No common bile duct dilatation noted. Patient states he feels a little better today had been experiencing a sensation of nausea earlier in the morning the Zofran relief a CAT scan of the abdomen pelvis has been ordered currently pending. Also patient is being seen by GI service. Lipase on admission elevated 828 currently patient is being followed by cardiology service Patient recently had a aortic valve replacement done on December 04 with pacemaker and AICD on December 11. Objective - Vital Signs Vital signs: Vital Signs Temp 100.0 F H 12/23/17 06:34 Pulse 96 12/23/17 06:34 Resp 18 12/23/17 06:34 BP 121/69 12/23/17 06:34 Pulse Ox 94 L 12/23/17 06:34 Intake & Output 12/22/17 12/23/17 12/23/17 18:59 06:59 18:59 Intake Total 2189.076 315.594 63.66 Balance 2189.076 315.594 63.66 Intake: Intake, IV Titration 2189.076 315.594 63.66 Amount Heparin Sod,Pork in 0.45% 189.076 265.594 63.66 NaCl 25,000 unit In 0.45 % NaCl 1 500ml.bag @ 18 UNITS/KG/HR 29.39 mls/hr IV .Q17H1M [facility] Rx#: [id number] Lactated Ringers 1,000 ml 1000 @ 250 mls/hr IV .Q4H [facility] Rx#:[id number] Piperacillin-Tazobactam 3 50 .375 gm In Dextrose/Water 1 50ml.bag @ 12.5 mls/hr IVPB Q8HR [facility] Rx#: [id number] Sodium Chloride 0.9% 1, 1000 000 ml @ 999 mls/hr IV . Q1H1M ONE Rx#:[id number] Other: # Voids 2 1 - Exam Physical exam 72-year-old male currently resting in bed just received morphine for pain which the patient states has significantly improved less abdominal discomfort currently Lungs adequate air movement no wheezing rales or rhonchi no cough noted Heart S1-S2 audible regular Abdomen soft bowel tones present. Reportedly experiencing nausea sensation this morning no active emesis no stool passing gas mild tenderness patient states it's across the abdominal wall no stool urinating no difficulty Extremities no edema - Labs CBC & Chem 7: 12/23/17 08:05 12/23/17 08:05 Labs: Abnormal Lab Results - Last 24 Hours (Table) 12/22/17 12/22/17 12/22/17 Range/Units 16:42 19:07 22:07 RBC (4.30-5.90) m/uL Hgb (13.0-17.5) gm/dL Hct (39.0-53.0) % MCV (80.0-100.0) fL Lymphocytes # (1.0-4.8) k/uL APTT 89.0 H 150.6 H* (22.0-30.0) sec Plasma Lactic Acid Parveen 2.1 H* (0.7-2.0) mmol/L Calcium (8.4-10.2) mg/dL Total Bilirubin (0.2-1.3) mg/dL AST (17-59) U/L ALT (21-72) U/L Alkaline Phosphatase (38-126) U/L Total Protein (6.3-8.2) g/dL Albumin (3.5-5.0) g/dL Lipase (23-300) U/L 12/23/17 12/23/17 12/23/17 Range/Units 08:05 08:05 08:05 RBC 3.11 L (4.30-5.90) m/uL Hgb 9.9 L (13.0-17.5) gm/dL Hct 31.2 L (39.0-53.0) % MCV 100.4 H (80.0-100.0) fL Lymphocytes # 0.6 L (1.0-4.8) k/uL APTT 100.6 H* (22.0-30.0) sec Plasma Lactic Acid Parveen (0.7-2.0) mmol/L Calcium 8.0 L (8.4-10.2) mg/dL Total Bilirubin 2.4 H (0.2-1.3) mg/dL AST 191 H (17-59) U/L ALT 229 H (21-72) U/L Alkaline Phosphatase 146 H (38-126) U/L Total Protein 6.0 L (6.3-8.2) g/dL Albumin 2.9 L (3.5-5.0) g/dL Lipase 332 H (23-300) U/L Microbiology - Last 24 Hours (Table) 12/22/17 06:02 Blood Culture - Final Blood 12/22/17 06:02 Blood Culture Gram Stain - Preliminary Blood Blood Culture - Preliminary Gram Neg Bacilli Assessment and Plan Assessment: Impression A recent aortic valve replacement for severe aortic stenosis done at [facility] on hold IV heparin drip A recent AICD pacemaker insertion for sick sinus syndrome and nonischemic cardiomyopathy cardiology following History of esophageal reflux disease BPH Paroxysmal atrial fibrillation currently in sinus cholecystitis with elevated liver enzymes and lipase suggestive of gallstone pancreatitis Plan Follow up on the CAT scan of the abdomen and pelvis results pending Continue IV antibiotics Pain control Continue recommendations by GI service Continue recommendations by cardiology service Will follow closely Keep nothing by mouth for now except ice chips Further surgical recommendations pending The above impression and plan of care have been discussed and directed by signing physician. Betty Gale nurse practitioner acting as scribe for signing physician. <Dylan Mejia - Last Filed: 12/23/17 17:19> Objective - Vital Signs Vital signs: Vital Signs Temp 98.7 F 12/23/17 15:00 Pulse 88 12/23/17 15:00 Resp 17 12/23/17 15:00 BP 129/60 12/23/17 15:00 Pulse Ox 96 12/23/17 15:00 Intake & Output 12/22/17 12/23/17 12/23/17 18:59 06:59 18:59 Intake Total 2189.076 315.594 171.372 Balance 2189.076 315.594 171.372 Intake: Intake, IV Titration 2189.076 315.594 171.372 Amount Heparin Sod,Pork in 0.45% 189.076 265.594 171.372 NaCl 25,000 unit In 0.45 % NaCl 1 500ml.bag @ 18 UNITS/KG/HR 29.39 mls/hr IV .Q17H1M [facility] Rx#: [id number] Lactated Ringers 1,000 ml 1000 @ 20 mls/hr IV .Q24H [facility] Rx#:[id number] Piperacillin-Tazobactam 3 50 .375 gm In Dextrose/Water 1 50ml.bag @ 12.5 mls/hr IVPB Q8HR [facility] Rx#: [id number] Sodium Chloride 0.9% 1, 1000 000 ml @ 999 mls/hr IV . Q1H1M ONE Rx#:[id number] Other: Voiding Method Toilet # Voids 2 1 2 # Bowel Movements 0 - Labs CBC & Chem 7: 12/23/17 08:05 12/23/17 08:05 Labs: Abnormal Lab Results - Last 24 Hours (Table) 12/22/17 12/22/17 12/23/17 Range/Units 19:07 22:07 08:05 RBC 3.11 L (4.30-5.90) m/uL Hgb 9.9 L (13.0-17.5) gm/dL Hct 31.2 L (39.0-53.0) % MCV 100.4 H (80.0-100.0) fL Lymphocytes # 0.6 L (1.0-4.8) k/uL APTT 150.6 H* (22.0-30.0) sec Plasma Lactic Acid Parveen 2.1 H* (0.7-2.0) mmol/L Calcium (8.4-10.2) mg/dL Total Bilirubin (0.2-1.3) mg/dL AST (17-59) U/L ALT (21-72) U/L Alkaline Phosphatase (38-126) U/L Total Protein (6.3-8.2) g/dL Albumin (3.5-5.0) g/dL Lipase (23-300) U/L 12/23/17 12/23/17 12/23/17 Range/Units 08:05 08:05 16:31 RBC (4.30-5.90) m/uL Hgb (13.0-17.5) gm/dL Hct (39.0-53.0) % MCV (80.0-100.0) fL Lymphocytes # (1.0-4.8) k/uL APTT 100.6 H* 51.0 H (22.0-30.0) sec Plasma Lactic Acid Parveen (0.7-2.0) mmol/L Calcium 8.0 L (8.4-10.2) mg/dL Total Bilirubin 2.4 H (0.2-1.3) mg/dL AST 191 H (17-59) U/L ALT 229 H (21-72) U/L Alkaline Phosphatase 146 H (38-126) U/L Total Protein 6.0 L (6.3-8.2) g/dL Albumin 2.9 L (3.5-5.0) g/dL Lipase 332 H (23-300) U/L Microbiology - Last 24 Hours (Table) 12/22/17 06:02 Blood Culture - Final Blood 12/22/17 06:02 Blood Culture Gram Stain - Preliminary Blood Blood Culture - Preliminary Gram Neg Bacilli Assessment and Plan Assessment: As above. Patient's enzymes remain elevated. Bilirubin increased slightly. Patient symptom solis has improved fairly dramatically. Pain is a 2 out of 10 currently. Patient may have passed a stone. CAT scan noted. Will repeat labs tomorrow. Timing of cholecystectomy to be determined. (1) Cholecystitis Current Visit: Yes Status: Acute Code(s): K81.9 - CHOLECYSTITIS, UNSPECIFIED SNOMED Code(s): 22590120
--- NOTE | 2017-12-23 15:10 | P.CONS ---
History of Present Illness - Reason for Consult Consult date: 12/23/17 Positive Blood culture - History of Present Illness This is a 72-year-old male patient with past mental history of gastroesophageal reflux disease, paroxysmal atrial fibrillation on eliquis, nonischemic cardiomyopathy with EF of 30-35%, hyperlipidemia, enlarged prostate , aortic valve stenosis with recent aortic valve replacement done on December 04, pacemaker/AICD on December 11 , hypertension. Patient and family gives history that on December 04 he underwent open heart surgery for aortic valve replacement done by Dr. Shah and 7 days later on December 11 he underwent a pacemaker/AICD placement with Dr. Flaherty for sick sinus syndrome and cardiomyopathy.. He states he had onset of abdominal pain with cramping aching type that was constant and severe along with nausea. This started at 9 PM yesterday and was in the epigastric area. He was having dry heaves but no actual vomiting. He denies diarrhea. He denies any chest pain or shortness of breath, no palpitations. The pain became so severe by 5 in the morning he called his kids and he was brought into [facility] emergency center for evaluation. Abdominal x-ray was unremarkable. Abdominal ultrasound shows fatty liver with focal fatty sparing. Cholelithiasis with thickened gallbladder wall. No evidence of. Cholecystic fluid. White count was normal, blood sugar 227, initial lactic acid 3.3 followed by 2.2, lipase was elevated at 828 as well as liver function tests were elevated. [facility]. Eliquis has been placed on hold and patient started on heparin drip for possible surgical intervention. Patient is been seen and followed by cardiology. Patient has been seen and followed by Dr. Mejia and started initially on Zosyn. Blood culture came back positive for gram-negative bacilli. CT of the abdomen and pelvis revealed hepatomegaly with hepatic steatosis. Gallbladder is borderline to mildly hypertrophic with layering sludge or gravel. Also mild edema tracking down the right side of the abdomen and accumulating in the pelvis. HIDA scan in early acute cholecystitis is concerned. Scarring inflammation of the right inguinal region with surgical clips in her. 2.1 cm fluid collection just anterior to the common femoral bifurcation, possible postoperative seroma or chronic hematoma. Infected fluid can't be excluded clinically. Trace right pleural effusion. Adjacent atelectasis and/or consolidation. Correlate to exclude pneumonia. Incentive spirometry was ordered and chest x-ray reveals bilateral consolidation and small pleural effusion. No overt failure. Currently pain is controlled. Temperature max has been 100.0. White count is normal, repeat lactic acid 1.3, liver function tests are elevated but not worsening. Lipase is much improved to 332. Patient remains nothing by mouth but would like to start eating. Patient is followed by GI as well. Acute hepatitis panel ordered. Review of Systems All systems: negative Constitutional: Reports poor appetite, Denies chills, Denies fever Eyes: denies blurred vision, denies pain Ears, nose, mouth and throat: Denies dysphagia, Denies headache, Denies sore throat, Denies vertigo Cardiovascular: Denies chest pain, Denies decreased exercise tolerance, Denies dyspnea on exertion, Denies edema, Denies leg edema, Denies lightheadedness, Denies shortness of breath, Denies syncope Respiratory: Denies cough, Denies cough with sputum, Denies dyspnea, Denies excessive sputum, Denies hemoptysis, Denies home oxygen, Denies wheezing Gastrointestinal: Reports abdominal pain, Reports loss of appetite, Reports nausea, Denies diarrhea, Denies vomiting Genitourinary: Denies dysuria Musculoskeletal: Denies myalgias Integumentary: Denies pruritus, Denies rash Neurological: Denies numbness, Denies weakness Psychiatric: Denies anxiety, Denies depression Endocrine: Denies fatigue, Denies weight change Past Medical History Past Medical History: Atrial Fibrillation, Cancer, GERD/Reflux, Hyperlipidemia, Pneumonia, Prostate Disorder Additional Past Medical History / Comment(s): Aortic valve stenosis status post aortic valve replacement, AICD/pacer inserted, chronic low back pain/better since back surgery, ear cancer removed, PLEASE USE PAPER TAPE AND IF POSSIBLE HYPOALLERGENIC ECG ELECTRODES. History of Any Multi-Drug Resistant Organisms: None Reported Past Surgical History: AICD, Back Surgery, Cardiac Valve Replacement, Pacemaker , Tonsillectomy Additional Past Surgical History / Comment(s): 11/10/17 AICD/pacer at [place], Aortic valve replacement, L4L5 with titanium cage/screws/plates, R ear cancer removal. Past Anesthesia/Blood Transfusion Reactions: No Reported Reaction Type of Cardiac Device: Permanent Pacemaker, AICD Device Placement Date:: 11/10/17 Smoking Status: Never smoker Additional Past Alcohol Use History / Comment(s): She is a lifelong nonsmoker. No illicit drug use. Patient drinks maybe 4 beers per year. - Past Family History Mother Family Medical History: COPD Additional Family Medical History / Comment(s): Mother from COPD at the age of 78yrs. Father History Unknown: Yes Additional Family Medical History / Comment(s): Patient does not know any history on his father. Brother(s) Additional Family Medical History / Comment(s): patient has 2 brothers. One brother had 4 vessel CABG. One brother has history of melanoma and gallbladder disease. Patient has one sister with history of gallbladder disease. Patient is 5 children with no major medical problems. Medications and Allergies Home Medications Medication Instructions Recorded Confirmed Type Amiodarone [Cordarone] 200 mg PO DAILY 12/22/17 12/22/17 History Apixaban [Eliquis] 5 mg PO BID 12/22/17 12/22/17 History Atorvastatin [Lipitor] 40 mg PO HS 12/22/17 12/22/17 History Docusate Sodium [Dok] 100 mg PO BID PRN 12/22/17 12/22/17 History Finasteride [Proscar] 5 mg PO DAILY 12/22/17 12/22/17 History Hydrocodone/Acetaminophen [[place] 1 tab PO Q3HR PRN 12/22/17 12/22/17 History 5-325] Ibuprofen 600 mg PO Q8H PRN 12/22/17 12/22/17 History L.acidoph,Paracasei, B.lactis 1 cap PO DAILY 12/22/17 12/22/17 History [Probiotic] Lisinopril [Zestril] 5 mg PO DAILY 12/22/17 12/22/17 History Metoprolol Succinate (ER) [Toprol 25 mg PO DAILY 12/22/17 12/22/17 History Xl] Multivitamin,Therapeutic [Thera] 1 tab PO DAILY 12/22/17 12/22/17 History Omeprazole 40 mg PO DAILY 12/22/17 12/22/17 History Tamsulosin [Flomax] 0.4 mg PO DAILY 12/22/17 12/22/17 History Allergies Allergy/AdvReac Type Severity Reaction Status Date / Time adhesive tape Allergy Rash/Hives Verified 12/22/17 08:07 hydromorphone [From Dilaudid] AdvReac Confusion Verified 12/22/17 08:07 Physical Exam Vitals: Vital Signs Temp Pulse Pulse Resp BP BP BP 12/23/17 06:34 100.0 F H 96 18 121/69 12/22/17 23:00 97.2 F L 94 18 112/59 12/22/17 17:23 92 108/62 12/22/17 16:00 16 12/22/17 14:09 98.4 F 96 16 91/58 12/22/17 12:56 91/50 85/51 12/22/17 11:57 99.3 F 105 H 18 87/52 86/56 12/22/17 09:34 98.4 F 107 H 20 120/68 12/22/17 08:55 100/61 12/22/17 08:50 116 H 18 94/55 Pulse Ox 12/23/17 06:34 94 L 12/22/17 23:00 95 12/22/17 17:23 12/22/17 16:00 12/22/17 14:09 96 12/22/17 12:56 12/22/17 11:57 96 12/22/17 09:34 97 12/22/17 08:55 12/22/17 08:50 97 Intake and Output 12/22/17 12/23/17 12/23/17 22:59 06:59 14:59 Intake Total 2239.076 265.594 Balance 2239.076 265.594 Intake: Intake, IV Titration 2239.076 265.594 Amount Heparin Sod,Pork in 0.45% 189.076 265.594 NaCl 25,000 unit In 0.45 % NaCl 1 500ml.bag @ 18 UNITS/KG/HR 29.39 mls/hr IV .Q17H1M LEILANI Rx#: [id number] Lactated Ringers 1,000 ml 1000 @ 250 mls/hr IV .Q4H LEILANI Rx#:[id number] Piperacillin-Tazobactam 3 50 .375 gm In Dextrose/Water 1 50ml.bag @ 12.5 mls/hr IVPB Q8HR LEILANI Rx#: [id number] Sodium Chloride 0.9% 1, 1000 000 ml @ 999 mls/hr IV . Q1H1M ONE Rx#:[id number] Other: # Voids 1 1 Gen: This is a 72-year-old male. He is sitting up in bed appears to be in no acute distress. HEENT: Head is atraumatic, normocephalic. Pupils equal, round. Sclerae is anicteric. NECK: Supple. No JVD. No lymphadenopathy. No thyromegaly. LUNGS: Clear to auscultation. No wheezes or rhonchi. No intercostal retractions. HEART: Regular rate and rhythm. No murmur. Mid sternal wound is dry with no erythema or edema. No drainage. Pacemaker site is clean dry and intact. ABDOMEN: Soft. Bowel sounds are present. No masses. Mild epigastric tenderness. EXTREMITIES: No pedal edema. No calf tenderness. Dorsalis pedis palpable bilaterally. NEUROLOGICAL: Patient is awake, alert and oriented x3. Cranial nerves 2 through 12 are grossly intact. Results Results: Laboratory Results WBC 8.4 k/uL (3.8-10.6) 12/23/17 08:05 RBC 3.11 m/uL (4.30-5.90) L 12/23/17 08:05 Hgb 9.9 gm/dL (13.0-17.5) L 12/23/17 08:05 Hct 31.2 % (39.0-53.0) L 12/23/17 08:05 MCV 100.4 fL (80.0-100.0) H 12/23/17 08:05 MCH 31.7 pg (25.0-35.0) 12/23/17 08:05 MCHC 31.5 g/dL (31.0-37.0) 12/23/17 08:05 RDW 14.5 % (11.5-15.5) 12/23/17 08:05 Plt Count 179 k/uL (150-450) 12/23/17 08:05 Neutrophils % 88 % 12/23/17 08:05 Lymphocytes % 7 % 12/23/17 08:05 Monocytes % 3 % 12/23/17 08:05 Eosinophils % 2 % 12/23/17 08:05 Basophils % 0 % 12/23/17 08:05 Neutrophils # 7.4 k/uL (1.3-7.7) 12/23/17 08:05 Lymphocytes # 0.6 k/uL (1.0-4.8) L 12/23/17 08:05 Monocytes # 0.2 k/uL (0-1.0) 12/23/17 08:05 Eosinophils # 0.2 k/uL (0-0.7) 12/23/17 08:05 Basophils # 0.0 k/uL (0-0.2) 12/23/17 08:05 Hypochromasia Moderate 12/23/17 08:05 Macrocytosis Slight 12/23/17 08:05 PT 10.7 sec (9.0-12.0) 12/22/17 10:50 INR 1.1 (<1.2) 12/22/17 10:50 APTT 100.6 sec (22.0-30.0) H* 12/23/17 08:05 Sodium 137 mmol/L (137-145) 12/23/17 08:05 Potassium 3.8 mmol/L (3.5-5.1) 12/23/17 08:05 Chloride 105 mmol/L (98-107) 12/23/17 08:05 Carbon Dioxide 26 mmol/L (22-30) 12/23/17 08:05 Anion Gap 6 mmol/L 12/23/17 08:05 BUN 16 mg/dL (9-20) 12/23/17 08:05 Creatinine 0.90 mg/dL (0.66-1.25) 12/23/17 08:05 Est GFR (CKD-EPI)AfAm >90 (>60 ml/min/1.73 sqM) 12/23/17 08:05 Est GFR (CKD-EPI)NonAf 84 (>60 ml/min/1.73 sqM) 12/23/17 08:05 Glucose 89 mg/dL (74-99) 12/23/17 08:05 Lactic Ac Sepsis Rflx Y 12/22/17 19:29 Plasma Lactic Acid Parveen 0.9 mmol/L (0.7-2.0) 12/23/17 08:05 Calcium 8.0 mg/dL (8.4-10.2) L 12/23/17 08:05 Total Bilirubin 2.4 mg/dL (0.2-1.3) H 12/23/17 08:05 AST 191 U/L (17-59) H 12/23/17 08:05 ALT 229 U/L (21-72) H 12/23/17 08:05 Alkaline Phosphatase 146 U/L (38-126) H 12/23/17 08:05 Troponin I <0.012 ng/mL (0.000-0.034) 12/22/17 05:56 Total Protein 6.0 g/dL (6.3-8.2) L 12/23/17 08:05 Albumin 2.9 g/dL (3.5-5.0) L 12/23/17 08:05 Amylase 76 U/L (30-110) 12/23/17 08:05 Lipase 332 U/L (23-300) H 12/23/17 08:05 Urine Color Yellow 12/22/17 08:40 Urine Appearance Cloudy (Clear) 12/22/17 08:40 Urine pH 5.5 (5.0-8.0) 12/22/17 08:40 Ur Specific [place] 1.018 (1.001-1.035) 12/22/17 08:40 Urine Protein Trace (Negative) H 12/22/17 08:40 Urine Glucose (UA) Negative (Negative) 12/22/17 08:40 Urine Ketones Negative (Negative) 12/22/17 08:40 Urine Blood Negative (Negative) 12/22/17 08:40 Urine Nitrite Negative (Negative) 12/22/17 08:40 Urine Bilirubin Negative (Negative) 12/22/17 08:40 Urine Urobilinogen <2.0 mg/dL (<2.0) 12/22/17 08:40 Ur Leukocyte Esterase Trace (Negative) H 12/22/17 08:40 Urine RBC 3 /hpf (0-5) 12/22/17 08:40 Urine WBC 8 /hpf (0-5) H 12/22/17 08:40 Urine WBC Clumps Rare /hpf (None) H 12/22/17 08:40 Urine Mucus Few /hpf (None) H 12/22/17 08:40 CBC & Chem 7: 12/23/17 08:05 12/23/17 08:05 Labs: Abnormal Lab Results - Last 24 Hours (Table) 12/22/17 12/22/17 12/22/17 Range/Units 08:40 09:48 10:50 RBC 3.56 L (4.30-5.90) m/uL Hgb 11.3 L (13.0-17.5) gm/dL Hct 35.7 L (39.0-53.0) % MCV 100.2 H (80.0-100.0) fL Neutrophils # 9.5 H (1.3-7.7) k/uL Lymphocytes # 0.2 L (1.0-4.8) k/uL APTT (22.0-30.0) sec Plasma Lactic Acid Parveen 2.2 H* (0.7-2.0) mmol/L Urine Protein Trace H (Negative) Ur Leukocyte Esterase Trace H (Negative) Urine WBC 8 H (0-5) /hpf Urine WBC Clumps Rare H (None) /hpf Urine Mucus Few H (None) /hpf 12/22/17 12/22/17 12/22/17 Range/Units 16:42 19:07 22:07 RBC (4.30-5.90) m/uL Hgb (13.0-17.5) gm/dL Hct (39.0-53.0) % MCV (80.0-100.0) fL Neutrophils # (1.3-7.7) k/uL Lymphocytes # (1.0-4.8) k/uL APTT 89.0 H 150.6 H* (22.0-30.0) sec Plasma Lactic Acid Parveen 2.1 H* (0.7-2.0) mmol/L Urine Protein (Negative) Ur Leukocyte Esterase (Negative) Urine WBC (0-5) /hpf Urine WBC Clumps (None) /hpf Urine Mucus (None) /hpf Microbiology - Last 24 Hours (Table) 12/22/17 06:02 Blood Culture - Final Blood 12/22/17 06:02 Blood Culture Gram Stain - Preliminary Blood Blood Culture - Preliminary Gram Neg Bacilli Assessment and Plan Plan: Is a 72-year-old male patient who presents to hospital with acute gallstone pancreatitis with gram-negative bacteremia, sepsis and lactic acidosis. He is currently on IV Zosyn which will be changed to meropenem. Repeat blood culture has been ordered. Patient is also followed by general surgery, GI and cardiology. Continue supportive care. Further recommendations as patient progresses. The above dictated assessment and findings were discussed with Dr. Pérez. The impression and plan of care have been directed as dictated. Nahed Casas nurse practitioner acting as scribe for Dr. Pérez.
[2017-12-23 16:31] LABS: Hepatitis A Antibody IgM Non-Reactive (Non-Reactive); Hepatitis B Core IgM Non-Reactive (Non-Reactive)
--- NOTE | 2017-12-23 18:29 | ECHOF ---
Referral Reason:cardiomyopathy MEASUREMENTS -------- HEIGHT: 167.6 cm WEIGHT: 81.6 kg BP: 121/69 RVIDd: 3.3 cm (< 3.3) IVSd: 1.1 cm (0.6 - 1.1) LVIDd: 5.7 cm (3.9 - 5.3) LVPWd: 1.1 cm (0.6 - 1.1) IVSs: 1.4 cm LVIDs: 4.9 cm LVPWs: 1.7 cm LAESV Index (A-L): 24.24 ml/m Ao Diam: 3.7 cm (2.0 - 3.7) EPSS: 1.0 cm MV E Reynaldo: 1.21 m/s MV DecT: 241 ms MV A Reynaldo: 0.01 m/s MV E/A Ratio: 110.03 AV maxP.26 mmHg AV meanP.29 mmHg RAP: 5.00 mmHg RVSP: 24.73 mmHg MV EF SLOPE: 227.24 mm/s (70 - 150) MV EXCURSION: 2.25 cm (> 18.000) FINDINGS -------- Sinus rhythm. Pacerwire seen in RV and RA. This was a technically difficult study with suboptimal views. The left ventricular size is normal. There is mild concentric left ventricular hypertrophy. Overa ll left ventricular systolic function is mild-moderately impaired with, an EF between 40 - 45 %. At ypical septal wall motion The right ventricle is mildly enlarged. Normal LA size by volume 22+/-6 ml/m2. The right atrium is normal in size. 3 ml of Lumason was utilized for enhancement of images. There is no evidence of aortic regurgitation. There is no evidence of aortic stenosis. Normally f unctioning bioprosthetic valve. Mild mitral annular calcification present. Mild mitral regurgitation is present. Mild tricuspid regurgitation present. Right ventricular systolic pressure is normal at < 35 mmHg. The right ventricular systolic pressure, as measured by Doppler, is 24.73mmHg. Trace/mild (physiologic) pulmonic regurgitation. The aortic root size is normal. Normal inferior vena cava with normal inspiratory collapse consistent with estimated right atrial pre ssure of 5 mmHg. There is no pericardial effusion. CONCLUSIONS -------- 1. Sinus rhythm. 2. Pacerwire seen in RV and RA. 3. This was a technically difficult study with suboptimal views. 4. The left ventricular size is normal. 5. There is mild concentric left ventricular hypertrophy. 6. Overall left ventricular systolic function is mild-moderately impaired with, an EF between 40 - 45 %. 7. Atypical septal wall motion 8. The right ventricle is mildly enlarged. 9. Normal LA size by volume 22+/-6 ml/m2. 10. 3 ml of Lumason was utilized for enhancement of images. 11. Normally functioning bioprosthetic valve. 12. Mild mitral annular calcification present. 13. Mild mitral regurgitation is present. 14. Mild tricuspid regurgitation present. 15. Right ventricular systolic pressure is normal at < 35 mmHg. 16. Trace/mild (physiologic) pulmonic regurgitation. 17. The aortic root size is normal. 18. There is no pericardial effusion. DIRECTOR OF MUSIC THERAPY: Eliseo Rodriguez RDCS
--- NOTE | 2017-12-23 21:35 | P.CON ---
Consult Note - . Consult date: 12/23/17 Assessment/Plan:: This is a 72-year-old male patient with past mental history of gastroesophageal reflux disease, paroxysmal atrial fibrillation on eliquis, nonischemic cardiomyopathy with EF of 30-35%, hyperlipidemia, enlarged prostate , aortic valve stenosis with recent aortic valve replacement done on December 04, pacemaker/AICD on December 11 , hypertension. Patient and family gives history that on December 04 he underwent open heart surgery for aortic valve replacement done by Dr. Shah and 7 days later on December 11 he underwent a pacemaker/AICD placement with Dr. Flaherty for sick sinus syndrome and cardiomyopathy.. He states he had onset of abdominal pain with cramping aching type that was constant and severe along with nausea. This started at 9 PM yesterday and was in the epigastric area. He was having dry heaves but no actual vomiting. He denies diarrhea. He denies any chest pain or shortness of breath, no palpitations. The pain became so severe by 5 in the morning he called his kids and he was brought into [facility] emergency center for evaluation. Abdominal x-ray was unremarkable. Abdominal ultrasound shows fatty liver with focal fatty sparing. Cholelithiasis with thickened gallbladder wall. No evidence of. Cholecystic fluid. White count was normal, blood sugar 227, initial lactic acid 3.3 followed by 2.2, lipase was elevated at 828 as well as liver function tests were elevated. [facility] Eliquis has been placed on hold and patient started on heparin drip for possible surgical intervention. Patient is been seen and followed by cardiology. Patient has been seen and followed by Dr. Mejia and started initially on Zosyn. Blood culture came back positive for gram-negative bacilli. CT of the abdomen and pelvis revealed hepatomegaly with hepatic steatosis. Gallbladder is borderline to mildly hypertrophic with layering sludge or gravel. Also mild edema tracking down the right side of the abdomen and accumulating in the pelvis. HIDA scan in early acute cholecystitis is concerned. Scarring inflammation of the right inguinal region with surgical clips in her. 2.1 cm fluid collection just anterior to the common femoral bifurcation, possible postoperative seroma or chronic hematoma. Infected fluid can't be excluded clinically. Trace right pleural effusion. Adjacent atelectasis and/or consolidation. Correlate to exclude pneumonia. Incentive spirometry was ordered and chest x-ray reveals bilateral consolidation and small pleural effusion. No overt failure. Currently pain is controlled. Temperature max has been 100.0. White count is normal, repeat lactic acid 1.3, liver function tests are elevated but not worsening. Lipase is much improved to 332. Patient remains nothing by mouth but would like to start eating. Patient is followed by GI as well. Acute hepatitis panel ordered. Please see the consult note is dictated by nurse practitioner Mrs. Nahed Casas. 72-year-old male who has a very significant recent past medical history with known aortic valve replacement for his severe aortic stenosis and evidence of significant conduction disruption in counseling pacemaker with AICD was placed. He had a multi-day hospitalization recovering from his extensive surgery is a known cardiomyopathy. Patient presents to Hospital feeling ill he developed progressive abdominal pain and progressed in nature assist with nausea without emesis but having dry heaves no hematemesis. Patient has been seen by general surgery and his concerns to avoid cholelithiasis. Patient had evidence of fever , elevated pancreatic enzymes and increasing total bilirubin. Concerns to biliary tract infection and pancreatic infection. With this antibiotic therapy with meropenem has been started especially given his stay at a tertiary center. General surgery and gastroenterology consults are in progress with the possibility of a ERCP if there is evidence of an obstructing stone. The patient is not highly symptomatic into the groin area. Cultures are progress for further help direct course of therapy. I agree with evaluation, assessment and plan is dictated by nurse practitioner Mrs. Nahed Casas.
[2017-12-24] MEDS: ONDANSETRON 4 MG/2 ML VIAL IVP PRN ×3 (03:03→15:40)
[2017-12-24] MEDS: FINASTERIDE 5 MG TAB PO SCH (09:29)
[2017-12-24] MEDS: TAMSULOSIN 0.4 MG CAP.ER.24H PO SCH (09:29)
[2017-12-24] MEDS: METOPROLOL SUCCINATE (ER) 25 MG TAB.ER.24H PO SCH (09:29)
[2017-12-24] MEDS: PANTOPRAZOLE 40 MG/10 ML VIAL IVP SCH (09:29)
[2017-12-24] MEDS: LISINOPRIL 5 MG TAB PO SCH (09:29)
[2017-12-24] MEDS: MEROPENEM 2 GM in SODIUM CHLORIDE 0.9% 100 ML IVPB SCH ×2 (09:29→15:40)
--- NOTE | 2017-12-24 09:54 | CDI ---
Last Revision, February 2017 Documentation Clarification Form Date: 12/24/17 From: Surekha Milan RN Admit Date: 12/22/2017 9:04:00 AM Patient Name: Cy Vicente Visit Number: [id number] ATTENTION: The Clinical Documentation Specialists (CDI) and [facility] Coding Staff appreciate your assistance in clarifying documentation. Please respond to the clarification below the line at the bottom and electronically sign. The CDI & [facility] Coding staff will review the response and follow-up if needed. Please note: Queries are made part of the Legal Health Record. If you have any questions, please contact the author of this message via ITS. Dr. Saul Hartley MD, Can you please render your opinion on the following documentation? History/Risk Factors: a fib, ear cancer, hyperlipidemia, pneumonia, pacer, cardiac valve replacement Clinical Indicators: Consult 12/23 Dr. Pérez states " gram negative bacteremia, sepsis and lactic acidosis". WBC on admission: 8.1 Lactic acid: 3.3 - 2.2 - 2.1 Blood cultures: Positive Escherichia coli Vitals signs on admission: 98.3, P 96, R 18, 105/65, 97% RA Temp. running 97.2 - 100.0, heart rate 73 - 123, R. 16-24 Treatment: ID Consult: Dr Pérez Antibiotics: Ampicillin IVPB, Meropenem IVPB, Piperacillin IVPB IV Bolus: .9 1000ml x 3 In your professional opinion, please clarify if these findings signify one of the following conditions, whether the condition is POA, and cause, if known: Condition Sepsis ruled in Sepsis ruled out Other, please specify Unable to determine Present on Admission: Yes No MTDD
[2017-12-24 10:42] LABS: Basophils % (A) 0 %; Eosinophils # (A) 0.1 k/uL (0-0.7); Eosinophils % (A) 1 %; HCT 33.4 % (39.0-53.0); Hypochromasia Slight; Lymphocytes # (A) 0.4 k/uL (1.0-4.8); Lymphocytes % (A) 9 %; MCH 32.6 pg (25.0-35.0); MCHC 32.9 g/dL (31.0-37.0); MCV 98.9 fL (80.0-100.0); Mean Platelet Volume 7.4; Monocytes # (A) 0.2 k/uL (0-1.0); Monocytes % (A) 4 %; Neutrophils # (A) 3.9 k/uL (1.3-7.7); Neutrophils % (A) 85 %; Platelet Count 186 k/uL (150-450); RBC 3.38 m/uL (4.30-5.90); RDW 14.2 % (11.5-15.5); WBC 4.6 k/uL (3.8-10.6)
[2017-12-24 11:17] LABS: ALT 190 U/L (21-72); AST 150 U/L (17-59); Alkaline Phosphatase 172 U/L (38-126); Amylase 68 U/L (30-110); Anion Gap 7 mmol/L; Blood Urea Nitrogen 9 mg/dL (9-20); Calcium 8.5 mg/dL (8.4-10.2); Carbon Dioxide 28 mmol/L (22-30); Chloride 103 mmol/L (98-107); Glucose 143 mg/dL (74-99); Lipase 505 U/L (23-300); Potassium 3.7 mmol/L (3.5-5.1); Sodium 138 mmol/L (137-145); Total Bilirubin 2.1 mg/dL (0.2-1.3); Total Protein 6.2 g/dL (6.3-8.2)
--- NOTE | 2017-12-24 11:24 | P.PN ---
Subjective Progress Note Date: 12/24/17 Principal diagnosis: Acute biliary pancreatitis Admitted with acute abdominal pain biliary pancreatitis possible cholecystitis. Feels better. CT reported no evidence of choledocholithiasis or biliary tree dilation. White count 4.6. Hemoglobin 11. Receiving intravenous heparin. LFTs slightly improved total bilirubin 2.1. AST 150. ALT 190. AP 172. Lipase 505. FOBT negative. Hepatitis screen nonreactive. Blood cultures positive for E. coli. T-max 100.0. Objective - Vital Signs Vital signs: Vital Signs Temp 98.1 F 12/24/17 06:25 Pulse 73 12/24/17 06:25 Resp 18 12/24/17 06:25 BP 145/69 12/24/17 06:25 Pulse Ox 95 12/24/17 06:25 Intake & Output 12/23/17 12/24/17 12/24/17 18:59 06:59 18:59 Intake Total 171.372 48.416 Balance 171.372 48.416 Weight 81.647 kg Intake: Intake, IV Titration 171.372 48.416 Amount Heparin Sod,Pork in 0.45% 171.372 48.416 NaCl 25,000 unit In 0.45 % NaCl 1 500ml.bag @ 18 UNITS/KG/HR 29.39 mls/hr IV .Q17H1M [facility] Rx#: [id number] Other: Voiding Method Toilet Toilet # Voids 2 2 # Bowel Movements 0 - Exam General appearance: The patient is alert, oriented, in no acute distress. HET: Head is normocephalic and atraumatic. Pupils are equal and reactive. Oropharynx is clear without lesions. Neck: Supple without lymphadenopathy. Trachea midline. Heart: S1 S2. Regular rate and rhythm. Lungs: No crackles or wheezes are heard. Abdomen: Soft, mild tenderness right upper quadrant midepigastrium, nondistended with bowel sounds. No peritoneal signs. No palpable organomegaly or masses. Extremities: Normal skin color and turgor. No cyanosis, rash, ulceration, clubbing, or edema. Radial and pedal pulses are 2/4 bilaterally. Neurological: No focal deficits. Strength and sensation are grossly intact. - Labs CBC & Chem 7: 12/24/17 10:26 12/24/17 10:26 Labs: Abnormal Lab Results - Last 24 Hours (Table) 1012/24/17 12/24/17 Range/Units 16:31 10:26 10:26 RBC 3.38 L (4.30-5.90) m/uL Hgb 11.0 L (13.0-17.5) gm/dL Hct 33.4 L (39.0-53.0) % Lymphocytes # 0.4 L (1.0-4.8) k/uL APTT 51.0 H (22.0-30.0) sec Glucose 143 H (74-99) mg/dL Total Bilirubin 2.1 H (0.2-1.3) mg/dL AST 150 H (17-59) U/L ALT 190 H (21-72) U/L Alkaline Phosphatase 172 H (38-126) U/L Total Protein 6.2 L (6.3-8.2) g/dL Albumin 3.0 L (3.5-5.0) g/dL Lipase 505 H (23-300) U/L 12/24/17 Range/Units 10:26 RBC (4.30-5.90) m/uL Hgb (13.0-17.5) gm/dL Hct (39.0-53.0) % Lymphocytes # (1.0-4.8) k/uL APTT 33.5 H (22.0-30.0) sec Glucose (74-99) mg/dL Total Bilirubin (0.2-1.3) mg/dL AST (17-59) U/L ALT (21-72) U/L Alkaline Phosphatase (38-126) U/L Total Protein (6.3-8.2) g/dL Albumin (3.5-5.0) g/dL Lipase (23-300) U/L Microbiology - Last 24 Hours (Table) 12/22/17 06:02 Blood Culture Gram Stain - Final Blood Blood Culture - Final Escherichia coli 12/22/17 06:02 Blood Culture - Final Blood Assessment and Plan (1) Pancreatitis Narrative/Plan: 72-year-old male admitted with sepsis secondary suspected acute biliary pancreatitis possible cholecystitis. Additionally per ultrasound 5.1 cm hypoechoic area seen near the gallbladder possible focal sparing not redemonstrated on CT imaging. LFTs slowly improving underlying choledocholithiasis cannot be entirely excluded. She has not a candidate for MRCP screening secondary to recent AICD insertion. Current Visit: Yes Status: Acute Code(s): K85.90 - ACUTE PANCREATITIS WITHOUT NECROSIS OR INFECTION, UNSP SNOMED Code(s): 32212590 (2) S/P AVR Current Visit: Yes Status: Acute Code(s): Z95.2 - PRESENCE OF PROSTHETIC HEART VALVE SNOMED Code(s): 0618270028961 (3) Gram-negative bacteremia Current Visit: Yes Status: Acute Code(s): R78.81 - BACTEREMIA SNOMED Code( s): 388960715465 Plan: 1. CT reviewed by Dr. Cordoba. Daily CMP, CBC, lipase. Possible ERCP tomorrow if LFTs do not improve. 2. Nothing by mouth except medications; diet to be determined by general surgery. IV hydration. IV antibiotics. GI prophylaxis. 3. General surgery following. We'll follow closely with you. Assessment and plan a care discussed with Dr. Cordoba
--- NOTE | 2017-12-24 11:59 | P.PN ---
Subjective Progress Note Date: 12/24/17 Principal diagnosis: Gallstone pancreatitis Patient continues to feel better. Minimal upper abdominal pain. No significant nausea. Today's liver enzymes for the most part trending downwards. Objective - Vital Signs Vital signs: Vital Signs Temp 98.1 F 12/24/17 06:25 Pulse 73 12/24/17 06:25 Resp 18 12/24/17 06:25 BP 145/69 12/24/17 06:25 Pulse Ox 95 12/24/17 06:25 Intake & Output 12/23/17 12/24/17 12/24/17 18:59 06:59 18:59 Intake Total 171.372 48.416 254.864 Balance 171.372 48.416 254.864 Weight 81.647 kg Intake: Intake, IV Titration 171.372 48.416 254.864 Amount Heparin Sod,Pork in 0.45% 171.372 48.416 254.864 NaCl 25,000 unit In 0.45 % NaCl 1 500ml.bag @ 18 UNITS/KG/HR 29.39 mls/hr IV .Q17H1M [facility] Rx#: [id number] Other: Voiding Method Toilet Toilet # Voids 2 2 # Bowel Movements 0 - Exam Abdomen: Soft, nondistended, mild epigastric tenderness - Labs CBC & Chem 7: 12/24/17 10:26 12/24/17 10:26 Labs: Abnormal Lab Results - Last 24 Hours (Table) 12/23/17 12/24/17 12/24/17 Range/Units 16:31 10:26 10:26 RBC 3.38 L (4.30-5.90) m/uL Hgb 11.0 L (13.0-17.5) gm/dL Hct 33.4 L (39.0-53.0) % Lymphocytes # 0.4 L (1.0-4.8) k/uL APTT 51.0 H (22.0-30.0) sec Glucose 143 H (74-99) mg/dL Total Bilirubin 2.1 H (0.2-1.3) mg/dL AST 150 H (17-59) U/L ALT 190 H (21-72) U/L Alkaline Phosphatase 172 H (38-126) U/L Total Protein 6.2 L (6.3-8.2) g/dL Albumin 3.0 L (3.5-5.0) g/dL Lipase 505 H (23-300) U/L 12/24/17 Range/Units 10:26 RBC (4.30-5.90) m/uL Hgb (13.0-17.5) gm/dL Hct (39.0-53.0) % Lymphocytes # (1.0-4.8) k/uL APTT 33.5 H (22.0-30.0) sec Glucose (74-99) mg/dL Total Bilirubin (0.2-1.3) mg/dL AST (17-59) U/L ALT (21-72) U/L Alkaline Phosphatase (38-126) U/L Total Protein (6.3-8.2) g/dL Albumin (3.5-5.0) g/dL Lipase (23-300) U/L Microbiology - Last 24 Hours (Table) 12/22/17 06:02 Blood Culture Gram Stain - Final Blood Blood Culture - Final Escherichia coli Assessment and Plan (1) Cholecystitis Narrative/Plan: Clinical scenario discussed with the patient and his daughter. We'll repeat labs tomorrow but tentatively plan laparoscopic cholecystectomy tomorrow unless the liver enzymes increase further. Risks of bleeding, infection, bile leak, bile duct injury, retained common bile duct stone, trocar injury, conversion to an open procedure, potential findings of other etiologies for pain requiring additional procedures, hernia, anesthesia related complications were reviewed. The patient understands and wishes to proceed. Current Visit: Yes Status: Acute Code(s): K81.9 - CHOLECYSTITIS, UNSPECIFIED SNOMED Code(s): 86664665
--- NOTE | 2017-12-24 12:04 | P.PN ---
Subjective Mr. Vicente is seen and examined resting comfortably in bed. His pain is under control. CT abdomen/pelvis reveals hepatomegaly with hepatic steatosis, mildly hydropic gallbladder with layering sludge or gravel, mild edema tracking down right side of abdomen and accumulating in the pelvis. Concern for early cholecystitis. Continues to be maintained on IV heparin. Laboratory data reviewed, hgb 11.0, plt 186, sodium 138, potassium 3.7, creatinine 0.79, total bilirubin 2.1, AST 150, ALT 190, alk phos 172 and lipase 505. Echocardiogram obtained yesterday revealed improved LV systolic function with EF 40-45%, normally functioning prosthetic aortic valve, mild MR and mild TR. He continues to maintain sinus mechanism. Blood pressure 145/69 heart rate 73 afebrile and maintaining oxygen saturation on room air. Objective - Vital Signs Vital signs: Vital Signs Temp 98.1 F 12/24/17 06:25 Pulse 73 12/24/17 06:25 Resp 18 12/24/17 06:25 BP 145/69 12/24/17 06:25 Pulse Ox 95 12/24/17 06:25 Intake & Output 12/23/17 12/24/17 12/24/17 18:59 06:59 18:59 Intake Total 171.372 48.416 Balance 171.372 48.416 Weight 81.647 kg Intake: Intake, IV Titration 171.372 48.416 Amount Heparin Sod,Pork in 0.45% 171.372 48.416 NaCl 25,000 unit In 0.45 % NaCl 1 500ml.bag @ 18 UNITS/KG/HR 29.39 mls/hr IV .Q17H1M [facility] Rx#: [id number] Other: Voiding Method Toilet Toilet # Voids 2 2 # Bowel Movements 0 - Exam GENERAL: Well-appearing, well-nourished and in no acute distress. NECK: Supple without JVD or thyromegaly. LUNGS: Breath sounds clear to auscultation bilaterally. Respiration equal and unlabored. No wheezes, rales or rhonchi. HEART: Regular rate and rhythm without murmurs, rubs or gallops. S1 and S2 heard. Mid-sternal chest wound clean, dry and intact with no redness, swelling or drainage. Pacemaker site clean, dry and intact with no redness, swelling or drainage. EXTREMITIES: Normal range of motion, no edema. No clubbing or cyanosis. Peripheral pulses intact. - Labs CBC & Chem 7: 12/24/17 10:26 12/24/17 10: Labs: Abnormal Lab Results - Last 24 Hours (Table) 12/23/17 12/24/17 12/24/17 Range/Units 16:31 10: 10:26 RBC 3.38 L (4.30-5.90) m/uL Hgb 11.0 L (13.0-17.5) gm/dL Hct 33.4 L (39.0-53.0) % Lymphocytes # 0.4 L (1.0-4.8) k/uL APTT 51.0 H (22.0-30.0) sec Glucose 143 H (74-99) mg/dL Total Bilirubin 2.1 H (0.2-1.3) mg/dL AST 150 H (17-59) U/L ALT 190 H (21-72) U/L Alkaline Phosphatase 172 H (38-126) U/L Total Protein 6.2 L (6.3-8.2) g/dL Albumin 3.0 L (3.5-5.0) g/dL Lipase 505 H (23-300) U/L 12/24/17 Range/Units 10:26 RBC (4.30-5.90) m/uL Hgb (13.0-17.5) gm/dL Hct (39.0-53.0) % Lymphocytes # (1.0-4.8) k/uL APTT 33.5 H (22.0-30.0) sec Glucose (74-99) mg/dL Total Bilirubin (0.2-1.3) mg/dL AST (17-59) U/L ALT (21-72) U/L Alkaline Phosphatase (38-126) U/L Total Protein (6.3-8.2) g/dL Albumin (3.5-5.0) g/dL Lipase (23-300) U/L Microbiology - Last 24 Hours (Table) 12/22/17 06:02 Blood Culture Gram Stain - Final Blood Blood Culture - Final Escherichia coli 12/22/17 06:02 Blood Culture - Final Blood Assessment and Plan Assessment: ASSESSMENT Acute cholecystitis, surgery is following. Currently awaiting CT abdomen/pelvis Acute pancreatitis, improving Hypotension, improved. History of hypertension Recent aortic prosthetic aortic valve replacement for severe aortic stenosis Recent AICD/pacemaker insertion Non-ischemic cardiomyopathy, last documented EF 20-30% per [facility] from [facility] Lactic acidosis Paroxysmal atrial fibrillation currently maintaining sinus mechanism on mcc anticoagulation with Eliquis Dyslipidemia PLAN Eliquis has been held per primary care team for possible surgical intervention. Heparin infusion has been initiated as well by primary care to team for ongoing thromboembolic protection. Heparin can be discontinued. Stable from a cardiac perspective for surgical intervention with increased risk. Further recommendations to follow based on clinical course. Nurse Practitioner note has been reviewed, I agree with a documented findings and plan of care. Patient was seen and examined.
[2017-12-24] MEDS: METOCLOPRAMIDE 5 MG/ML 2 ML VIAL IVP PRN ×2 (13:12→19:58)
[2017-12-24] MEDS: LACTATED RINGERS 1,000 ML IV SCH (13:37)
[2017-12-24] MEDS ORDERED: ALPRAZolam 0.25 MG TAB PO PRN (14:27)
--- NOTE | 2017-12-24 15:35 | P.PN ---
Subjective Progress Note Date: 12/24/17 This is a 72-year-old male patient of Dr. Preciado with past mental history of gastroesophageal reflux disease, paroxysmal atrial fibrillation on eliquis, nonischemic cardiomyopathy with EF of 30-35%, hyperlipidemia, enlarged prostate, aortic valve stenosis with recent aortic valve replacement done on December 04, pacemaker/AICD on December 11 , hypertension. Patient and family gives history that on December 04 he underwent open heart surgery for aortic valve replacement done by Dr. Shah and 7 days later on December 11 he underwent a pacemaker/AICD placement with Dr. Flaherty for sick sinus syndrome and cardiomyopathy.. He states he had onset of abdominal pain with cramping aching type that was constant and severe along with nausea. This started at 9 PM yesterday and was in the epigastric area. He was having dry heaves but no actual vomiting. He denies diarrhea. He denies any chest pain or shortness of breath, no palpitations. The pain became so severe by 5 in the morning he called his kids and he was brought into [facility] emergency center for evaluation. Abdominal x-ray was unremarkable. Abdominal ultrasound shows fatty liver with focal fatty sparing. Cholelithiasis with thickened gallbladder wall. No evidence of. Cholecystic fluid. White count was normal, blood sugar 227, initial lactic acid 3.3 followed by 2.2, lipase was elevated at 828 as well as liver function tests were elevated. Patient was admitted to the Medr floor. Eliquis has been placed on hold and patient started on heparin drip for possible surgical intervention. Patient is been seen and followed by cardiology. 12/23: Due to fluid overload, IV fluids decreased to KVO. Incentive spirometry and chest x-ray ordered. Patient has been seen by general surgery with plan for CT of the abdomen and pelvis this afternoon which revealed hepatomegaly with hepatic steatosis. Borderli. Currently pain is controlled. Consult with Dr. Pérez for gram-negative bacteremia and antibiotics have been changed to meropenem. Temperature max has been 100.0. White count is normal, repeat lactic acid 1.3, liver function tests are elevated. Lipase is much improved to 332. Patient remains nothing by mouth but would like to start eating. Maybe by tomorrow diet can be started. Patient is followed by GI as well. Acute hepatitis panel ordered. 12/24: White count remains normal. Liver function tests are elevated but slightly improved from yesterday. Lipase is up from yesterday to 505. Stool for occult blood was negative. Acute hepatitis panel was negative. Patient has been started on clear liquid diet. He is scheduled for surgery with Dr. Chairez tomorrow afternoon. He states his pain is okay at this time and he has not been taking morphine. He does continue to have nausea and dry heaves. He states his pain is not any worse with eating or drinking. Patient remains on a heparin drip and followed by cardiology. A culture is positive for E. coli, pansensitive. Patient is on meropenem. Repeat blood culture ordered. Objective - Vital Signs Vital signs: Vital Signs Temp 98.1 F 12/24/17 06:25 Pulse 73 12/24/17 06:25 Resp 18 12/24/17 06:25 BP 145/69 12/24/17 06:25 Pulse Ox 95 12/24/17 06:25 Intake & Output 12/23/17 12/24/17 12/24/17 18:59 06:59 18:59 Intake Total 171.372 48.416 Balance 171.372 48.416 Weight 81.647 kg Intake: Intake, IV Titration 171.372 48.416 Amount Heparin Sod,Pork in 0.45% 171.372 48.416 NaCl 25,000 unit In 0.45 % NaCl 1 500ml.bag @ 18 UNITS/KG/HR 29.39 mls/hr IV .Q17H1M [facility] Rx#: [id number] Other: Voiding Method Toilet Toilet # Voids 2 2 # Bowel Movements 0 - Exam Gen: This is a 72-year-old male. He is sitting up in bed appears to be in no acute distress. HEENT: Head is atraumatic, normocephalic. Pupils equal, round. Sclerae is anicteric. NECK: Supple. No JVD. No lymphadenopathy. No thyromegaly. LUNGS: Clear to auscultation. No wheezes or rhonchi. No intercostal retractions. HEART: Regular rate and rhythm. No murmur. Mid sternal wound is dry with no erythema or edema. No drainage. Pacemaker site is clean dry and intact. ABDOMEN: Soft. Bowel sounds are present. No masses. Mild epigastric tenderness. EXTREMITIES: No pedal edema. No calf tenderness. Dorsalis pedis palpable bilaterally. NEUROLOGICAL: Patient is awake, alert and oriented x3. Cranial nerves 2 through 12 are grossly intact. - Labs CBC & Chem 7: 12/24/17 10:26 12/24/17 10:26 Labs: Abnormal Lab Results - Last 24 Hours (Table) 12/23/17 12/24/17 12/24/17 Range/Units 16:31 10: 10:26 RBC 3.38 L (4.30-5.90) m/uL Hgb 11.0 L (13.0-17.5) gm/dL Hct 33.4 L (39.0-53.0) % Lymphocytes # 0.4 L (1.0-4.8) k/uL APTT 51.0 H 33.5 H (22.0-30.0) sec Microbiology - Last 24 Hours (Table) 12/22/17 06:02 Blood Culture Gram Stain - Final Blood Blood Culture - Final Escherichia coli 12/22/17 06:02 Blood Culture - Final Blood Assessment and Plan Plan: 1. Acute gallbladder pancreatitis with E. coli bacteremia. Continue IV fluids , nothing by mouth except for ice chips. Consult with GI and general surgery. Continue morphine for pain and Zofran as needed for nausea. Consult with Dr. Pérez and antibiotics have been changed to meropenem. CAT scan as above. Patient cholecystectomy tomorrow with Dr. Mejia. Repeat blood cultures have been ordered. 2. Recent aortic valve replacement for severe aortic stenosis done at [facility]. Cardiology consult appreciated. Eliquis changed to heparin drip for now anticipated possible surgery. 3. Paroxysmal atrial fibrillation currently in a sinus rhythm. Eliquis changed to heparin drip. 4. Recent AICD pacemaker insertion for sick sinus syndrome and nonischemic cardiomyopathy, stable. Cardiology consult appreciated. 5. Lactic acidosis with hypotension status post fluid resuscitation. 6. Hyperlipidemia. 7. Benign prostatic hypertrophy. Continue Flomax 0.4 mg daily. 8. Gastroesophageal reflux disease. Continue Protonix. 9. Hypertension. Continue lisinopril and metoprolol with parameters. 10. DVT prophylaxis. Heparin. Discharge plan: Most likely return home. Impression and plan of care have been directed as dictated by the signing physician. Nahed Casas nurse practitioner acting as scribe for signing physician.
[2017-12-24] MEDS: HYDROcodone/APAP 5-325MG 1 EACH TAB PO PRN (22:49)
[2017-12-25] MEDS: MEROPENEM 2 GM in SODIUM CHLORIDE 0.9% 100 ML IVPB SCH ×2 (00:05→10:44)
[2017-12-25 07:59] LABS: ALT 197 U/L (21-72); AST 163 U/L (17-59); Albumin 3.2 g/dL (3.5-5.0); Alkaline Phosphatase 201 U/L (38-126); Amylase 93 U/L (30-110); Anion Gap 6 mmol/L; Blood Urea Nitrogen 5 mg/dL (9-20); Calcium 8.7 mg/dL (8.4-10.2); Carbon Dioxide 31 mmol/L (22-30); Chloride 104 mmol/L (98-107); Glucose 111 mg/dL (74-99); Lipase 740 U/L (23-300); Potassium 3.8 mmol/L (3.5-5.1); Sodium 141 mmol/L (137-145); Total Bilirubin 1.9 mg/dL (0.2-1.3); Total Protein 6.5 g/dL (6.3-8.2)
[2017-12-25 08:00] VITALS: BP 144/78; PULSE 77; RESP 18; TEMP 98.7
[2017-12-25 08:03] LABS: Basophils % (A) 0 %; Eosinophils # (A) 0.1 k/uL (0-0.7); Eosinophils % (A) 2 %; HCT 35.6 % (39.0-53.0); HGB 11.2 gm/dL (13.0-17.5); Hypochromasia Slight; Lymphocytes # (A) 0.6 k/uL (1.0-4.8); Lymphocytes % (A) 14 %; MCHC 31.5 g/dL (31.0-37.0); MCV 101.6 fL (80.0-100.0); Macrocytosis Slight; Monocytes # (A) 0.2 k/uL (0-1.0); Monocytes % (A) 5 %; Neutrophils # (A) 3.4 k/uL (1.3-7.7); Neutrophils % (A) 77 %; Platelet Count 217 k/uL (150-450); RDW 14.4 % (11.5-15.5); WBC 4.4 k/uL (3.8-10.6)
[2017-12-25] MEDS: PANTOPRAZOLE 40 MG/10 ML VIAL IVP SCH (10:44)
[2017-12-25] MEDS ORDERED: DEXTROSE 5%-0.9% NACL 1,000 ML IV SCH (11:30)
--- NOTE | 2017-12-25 11:40 | P.PN ---
Subjective Progress Note Date: 12/25/17 Principal diagnosis: Acute biliary pancreatitis Admitted with acute abdominal pain biliary pancreatitis possible cholecystitis. Feels better. CT reported no evidence of choledocholithiasis or biliary tree dilation. Intravenous heparin discontinued. LFTs minimally improved total bilirubin 1.9. Afebrile. Objective - Vital Signs Vital signs: Vital Signs Temp 98.7 F 12/25/17 07:00 Pulse 77 12/25/17 07:00 Resp 18 12/25/17 07:00 BP 144/78 12/25/17 07:00 Pulse Ox 94 L 12/25/17 07:00 Intake & Output 12/24/17 12/25/17 12/25/17 18:59 06:59 18:59 Intake Total 514.864 200 Balance 514.864 200 Intake: Intake, IV Titration 514.864 Amount Heparin Sod,Pork in 0.45% 254.864 NaCl 25,000 unit In 0.45 % NaCl 1 500ml.bag @ 18 UNITS/KG/HR 29.39 mls/hr IV .Q17H1M [facility] Rx#: [id number] Lactated Ringers 1,000 ml 160 @ 20 mls/hr IV .Q24H [facility] Rx#:[id number] Meropenem 2 gm In Sodium 100 Chloride 0.9% 100 ml @ 200 mls/hr IVPB Q8HR [facility] Rx#:[id number] Oral 200 Other: # Voids 4 1 # Bowel Movements 0 - Exam General appearance: The patient is alert, oriented, in no acute distress. HET: Head is normocephalic and atraumatic. Pupils are equal and reactive. Oropharynx is clear without lesions. Neck: Supple without lymphadenopathy. Trachea midline. Heart: S1 S2. Regular rate and rhythm. Lungs: No crackles or wheezes are heard. Abdomen: Soft, mild tenderness right upper quadrant midepigastrium, nondistended with bowel sounds. No peritoneal signs. No palpable organomegaly or masses. Extremities: Normal skin color and turgor. No cyanosis, rash, ulceration, clubbing, or edema. Radial and pedal pulses are 2/4 bilaterally. Neurological: No focal deficits. Strength and sensation are grossly intact. - Labs CBC & Chem 7: 12/25/17 07:20 12/25/17 07:20 Labs: Abnormal Lab Results - Last 24 Hours (Table) 12/25/17 12/25/17 Range/Units 07:20 07:20 RBC 3.50 L (4.30-5.90) m/uL Hgb 11.2 L (13.0-17.5) gm/dL Hct 35.6 L (39.0-53.0) % MCV 101.6 H (80.0-100.0) fL Lymphocytes # 0.6 L (1.0-4.8) k/uL Carbon Dioxide 31 H (22-30) mmol/L BUN 5 L (9-20) mg/dL Glucose 111 H (74-99) mg/dL Total Bilirubin 1.9 H (0.2-1.3) mg/dL AST 163 H (17-59) U/L ALT 197 H (21-72) U/L Alkaline Phosphatase 201 H (38-126) U/L Albumin 3.2 L (3.5-5.0) g/dL Lipase 740 H (23-300) U/L Assessment and Plan (1) Pancreatitis Narrative/Plan: 72-year-old male admitted with sepsis secondary suspected acute biliary pancreatitis possible cholecystitis. Additionally per ultrasound 5.1 cm hypoechoic area seen near the gallbladder possible focal sparing not redemonstrated on CT imaging. LFTs slowly improving underlying choledocholithiasis cannot be entirely excluded. He is not a candidate for MRCP screening secondary to recent AICD insertion. Status: Acute Code(s): K85.90 - ACUTE PANCREATITIS WITHOUT NECROSIS OR INFECTION, UNSP SNOMED Code(s): 93728309 (2) S/P AVR Status: Acute Code(s): Z95.2 - PRESENCE OF PROSTHETIC HEART VALVE SNOMED Code(s): 7938809498251 (3) Gram-negative bacteremia Status: Acute Code(s): R78.81 - BACTEREMIA SNOMED Code(s): 487786231253 Plan: 1. Case was discussed with general surgeon Dr. Mejia, laparoscopic cholecystectomy was planned today however postponed secondary to persistent elevation of transaminases and hyperbilirubinemia underlying choledocholithiasis cannot be entirely excluded. ERCP recommended however patient is an increased risk secondary to recent valvular heart surgery therefore general surgeon and supervisor painting Dr. Alford recommend consideration for transfer to tertiary care center preferably to [facility] where previous heart surgery was performed. Lengthy discussion was held at bedside this morning with family and patient; they're agreeable with transfer to [facility]. 2. Nothing by mouth except medications; diet to be determined by general surgery. IV hydration. IV antibiotics. GI prophylaxis. Assessment and plan a care discussed with Dr. Alford
[2017-12-25] MEDS: METOPROLOL SUCCINATE (ER) 25 MG TAB.ER.24H PO SCH (13:25)
[2017-12-25] MEDS: LISINOPRIL 5 MG TAB PO SCH (13:25)
[2017-12-25] MEDS: FINASTERIDE 5 MG TAB PO SCH (13:25)
[2017-12-25] MEDS: HYDROcodone/APAP 5-325MG 1 EACH TAB PO PRN (13:26)
[2017-12-25] MEDS: TAMSULOSIN 0.4 MG CAP.ER.24H PO SCH (13:26)
[2017-12-25] MEDS: LACTATED RINGERS 1,000 ML IV SCH (13:46)
[2017-12-25 13:59] VITALS: BMI 29.0
--- NOTE | 2017-12-25 14:17 | P.PN ---
Subjective Mr. Vicente is seen and examined resting comfortably in bed with family at the bedside. Surgery was scheduled for today but apparently has been cancelled and he is being transferred to [facility] for surgery to be performed there secondary to persistent elevation of transaminase and hyperbilirubinemia. He denies symptoms of chest pain, shortness of breath, dizziness or palpitations. Amiodarone has been discontinued and rationale explained to him and his family in detail. They are in agreement and verbalize understanding. Blood pressure 144 /78 heart rate 77 afebrile maintaining oxygen saturation on room air. Laboratory data reviewed, hemoglobin 11.2, platelets 217, sodium 141, potassium 3.8, creatinine 0.75, bilirubin 1.9, AST 163, ALT 197, alk phos 201, lipase 740. Hepatitis screen nonreactive. Objective - Vital Signs Vital signs: Vital Signs Temp 98.7 F 12/25/17 07:00 Pulse 77 12/25/17 07:00 Resp 18 12/25/17 07:00 BP 144/78 12/25/17 07:00 Pulse Ox 94 L 12/25/17 07:00 Intake & Output 12/24/17 12/25/17 12/25/17 18:59 06:59 18:59 Intake Total 514.864 200 Balance 514.864 200 Weight 81.647 kg Intake: Intake, IV Titration 514.864 Amount Heparin Sod,Pork in 0.45% 254.864 NaCl 25,000 unit In 0.45 % NaCl 1 500ml.bag @ 18 UNITS/KG/HR 29.39 mls/hr IV .Q17H1M LEILANI Rx#: [id number] Lactated Ringers 1,000 ml 160 @ 20 mls/hr IV .Q24H LEILANI Rx#:[id number] Meropenem 2 gm In Sodium 100 Chloride 0.9% 100 ml @ 200 mls/hr IVPB Q8HR LEILANI Rx#:[id number] Oral 200 Other: # Voids 4 1 # Bowel Movements 0 - Exam GENERAL: Well-appearing, well-nourished and in no acute distress. NECK: Supple without JVD or thyromegaly. LUNGS: Breath sounds clear to auscultation bilaterally. Respiration equal and unlabored. No wheezes, rales or rhonchi. HEART: Regular rate and rhythm without murmurs, rubs or gallops. S1 and S2 heard. Mid-sternal chest wound clean, dry and intact with no redness, swelling or drainage. Pacemaker site clean, dry and intact with no redness, swelling or drainage. EXTREMITIES: Normal range of motion, no edema. No clubbing or cyanosis. Peripheral pulses intact. - Labs CBC & Chem 7: 12/25/17 07:20 12/25/17 07:20 Labs: Abnormal Lab Results - Last 24 Hours (Table) 12/25/17 12/25/17 Range/Units 07:20 07:20 RBC 3.50 L (4.30-5.90) m/uL Hgb 11.2 L (13.0-17.5) gm/dL Hct 35.6 L (39.0-53.0) % MCV 101.6 H (80.0-100.0) fL Lymphocytes # 0.6 L (1.0-4.8) k/uL Carbon Dioxide 31 H (22-30) mmol/L BUN 5 L (9-20) mg/dL Glucose 111 H (74-99) mg/dL Total Bilirubin 1.9 H (0.2-1.3) mg/dL AST 163 H (17-59) U/L ALT 197 H (21-72) U/L Alkaline Phosphatase 201 H (38-126) U/L Albumin 3.2 L (3.5-5.0) g/dL Lipase 740 H (23-300) U/L Assessment and Plan Assessment: ASSESSMENT Acute cholecystitis, surgery is following. Currently awaiting CT abdomen/pelvis Acute pancreatitis, improving Hypotension, improved. History of hypertension Recent aortic prosthetic aortic valve replacement for severe aortic stenosis Recent AICD/pacemaker insertion Non-ischemic cardiomyopathy, last documented EF 20-30% per THOMPSON from [place] Lactic acidosis Paroxysmal atrial fibrillation currently maintaining sinus mechanism on fci anticoagulation with Eliquis Dyslipidemia PLAN Stable from a cardiac perspective. Continue lisinopril 5 mg daily and Toprol 25 mg daily. Nurse Practitioner note has been reviewed, I agree with a documented findings and plan of care. Patient was seen and examined.
--- NOTE | 2017-12-25 14:52 | P.DS ---
Providers Date of admission: 12/22/17 09:04 Expected date of discharge: 12/25/17 Attending physician: Saul Hartley MD Consults: 12/22/17 10:19 Consult Physician Routine Consulting Provider: Zacarias Alford Consult Reason/Comments: acute pancreatitis Do you want consulting provider notified?: Yes 12/22/17 10:22 Consult Physician Routine Consulting Provider: Jj Santos Consult Reason/Comments: AV replacement recent Do you want consulting provider notified?: Yes 12/22/17 10:38 Consult Physician Routine Consulting Provider: Dylan Mejia Consult Reason/Comments: pancreatitis, cholecystitis Do you want consulting provider notified?: Yes 12/22/17 19:16 Consult Physician Routine Consulting Provider: Amando Pérez Consult Reason/Comments: positive blood cultures Do you want consulting provider notified?: Yes Primary care physician: [facility] Course: This is a 72-year-old male patient of Dr. Preciado with past mental history of gastroesophageal reflux disease, paroxysmal atrial fibrillation on eliquis, nonischemic cardiomyopathy with EF of 30-35%, hyperlipidemia, enlarged prostate, aortic valve stenosis with recent aortic valve replacement done on December 04, pacemaker/AICD on December 11 , hypertension. Patient and family gives history that on December 04 he underwent open heart surgery for aortic valve replacement done by Dr. Shah and 7 days later on December 11 he underwent a pacemaker/AICD placement with Dr. Flaherty for sick sinus syndrome and cardiomyopathy.. He states he had onset of abdominal pain with cramping aching type that was constant and severe along with nausea. This started at 9 PM yesterday and was in the epigastric area. He was having dry heaves but no actual vomiting. He denies diarrhea. He denies any chest pain or shortness of breath, no palpitations. The pain became so severe by 5 in the morning he called his kids and he was brought into [facility] emergency center for evaluation. Abdominal x-ray was unremarkable. Abdominal ultrasound shows fatty liver with focal fatty sparing. Cholelithiasis with thickened gallbladder wall. No evidence of. Cholecystic fluid. White count was normal, blood sugar 227, initial lactic acid 3.3 followed by 2.2, lipase was elevated at 828 as well as liver function tests were elevated. Patient was admitted to the Med floor. Eliquis has been placed on hold and patient started on heparin drip for possible surgical intervention. Patient is been seen and followed by cardiology. 12/23: Due to fluid overload, IV fluids decreased to KVO. Incentive spirometry and chest x-ray ordered. Patient has been seen by general surgery with plan for CT of the abdomen and pelvis this afternoon which revealed hepatomegaly with hepatic steatosis. Borderli. Currently pain is controlled. Consult with Dr. Pérez for gram-negative bacteremia and antibiotics have been changed to meropenem. Temperature max has been 100.0. White count is normal, repeat lactic acid 1.3, liver function tests are elevated. Lipase is much improved to 332. Patient remains nothing by mouth but would like to start eating. Maybe by tomorrow diet can be started. Patient is followed by GI as well. Acute hepatitis panel ordered. 12/24: White count remains normal. Liver function tests are elevated but slightly improved from yesterday. Lipase is up from yesterday to 505. Stool for occult blood was negative. Acute hepatitis panel was negative. Patient has been started on clear liquid diet. He is scheduled for surgery with Dr. Chairez tomorrow afternoon. He states his pain is okay at this time and he has not been taking morphine. He does continue to have nausea and dry heaves. He states his pain is not any worse with eating or drinking. Patient remains on a heparin drip and followed by cardiology. A culture is positive for E. coli, pansensitive. Patient is on meropenem. Repeat blood culture ordered. 12/25: White count is normal, hemoglobin 11.2. Lipase is rising currently at 740. Liver function tests are holding total bilirubin 1.9, AST 163, ALT 197, alkaline phosphatase 201. It was decided the patient will be transferred down to [facility] for further treatment. Cholecystectomy scheduled for today has been canceled. No plan for ERCP here. On exam, patient states pain is currently controlled. Initial blood culture finalized with E. coli and repeat blood culture is status received. Case management is making arrangements for transfer. Discharge diagnoses: 1. Acute gallbladder pancreatitis with E. coli bacteremia. Continue IV fluids , nothing by mouth except for ice chips. Consult with GI and general surgery. Continue morphine for pain and Zofran as needed for nausea. Consult with Dr. Pérez and antibiotics have been changed to meropenem. CAT scan as above. Repeat blood cultures have been ordered. 2. Recent aortic valve replacement for severe aortic stenosis done at [facility]. Cardiology consult appreciated. Eliquis changed to heparin drip for now anticipated possible surgery. 3. Paroxysmal atrial fibrillation currently in a sinus rhythm. Eliquis changed to heparin drip. 4. Recent AICD pacemaker insertion for sick sinus syndrome and nonischemic cardiomyopathy, stable. Cardiology consult appreciated. 5. Lactic acidosis with hypotension status post fluid resuscitation. 6. Hyperlipidemia. 7. Benign prostatic hypertrophy. Continue Flomax 0.4 mg daily. 8. Gastroesophageal reflux disease. Continue Protonix. 9. Hypertension. Continue lisinopril and metoprolol with parameters. 10. DVT prophylaxis. Heparin. Impression and plan of care have been directed as dictated by the signing physician. Nahed Casas nurse practitioner acting as scribe for signing physician. Patient Condition at Discharge: Stable Plan - Discharge Summary Discharge Rx Participant: Yes New Discharge Prescriptions: No Action Tamsulosin [Flomax] 0.4 mg PO DAILY Metoprolol Succinate (ER) [Toprol Xl] 25 mg PO DAILY Hydrocodone/Acetaminophen [[place] 5-325] 1 tab PO Q3HR PRN PRN Reason: Pain Finasteride [Proscar] 5 mg PO DAILY Atorvastatin [Lipitor] 40 mg PO HS Apixaban [Eliquis] 5 mg PO BID Amiodarone [Cordarone] 200 mg PO DAILY Omeprazole 40 mg PO DAILY Multivitamin,Therapeutic [Thera] 1 tab PO DAILY Lisinopril [Zestril] 5 mg PO DAILY L.acidoph,Paracasei, B.lactis [Probiotic] 1 cap PO DAILY Ibuprofen 600 mg PO Q8H PRN PRN Reason: Pain Docusate Sodium [Dok] 100 mg PO BID PRN PRN Reason: Constipation Discharge Medication List Amiodarone [Cordarone] 200 mg PO DAILY 12/22/17 [History] Apixaban [Eliquis] 5 mg PO BID 12/22/17 [History] Atorvastatin [Lipitor] 40 mg PO HS 12/22/17 [History] Docusate Sodium [Dok] 100 mg PO BID PRN 12/22/17 [History] Finasteride [Proscar] 5 mg PO DAILY 12/22/17 [History] Hydrocodone/Acetaminophen [[place] 5-325] 1 tab PO Q3HR PRN 12/22/17 [History] Ibuprofen 600 mg PO Q8H PRN 12/22/17 [History] L.acidoph,Paracasei, B.lactis [Probiotic] 1 cap PO DAILY 12/22/17 [History] Lisinopril [Zestril] 5 mg PO DAILY 12/22/17 [History] Metoprolol Succinate (ER) [Toprol Xl] 25 mg PO DAILY 12/22/17 [History] Multivitamin,Therapeutic [Thera] 1 tab PO DAILY 12/22/17 [History] Omeprazole 40 mg PO DAILY 12/22/17 [History] Tamsulosin [Flomax] 0.4 mg PO DAILY 12/22/17 [History] Follow up Appointment(s)/Referral(s): Amando Preciado MD [Primary Care Provider] - 1-2 days Patient Instructions/Handouts: Cholecystitis (ED), Gallstones (IP) Discharge Disposition: OTHER INSTITUTION NOT DEFINED
--- NOTE | 2017-12-29 07:25 | CDI ---
Last Revision, February 2017 Documentation Clarification Form Date: 12/24/2017 9:54:00 AM From: Surekha Milan Admit Date: 12/22/2017 9:04:00 AM Patient Name: Cy Vicente Visit Number: [id number] Discharge Date: 12/25/17 ATTENTION: The Clinical Documentation Specialists (CDI) and [facility] Coding Staff appreciate your assistance in clarifying documentation. Please respond to the clarification below the line at the bottom and electronically sign. The CDI & [facility] Coding staff will review the response and follow-up if needed. Please note: Queries are made part of the Legal Health Record. If you have any questions, please contact the author of this message via ITS. Saul Anderson MD, Can you please render your opinion on the following documentation? History/Risk Factors: a fib, ear cancer, hyperlipidemia, pneumonia, pacer, cardiac valve replacement Clinical Indicators: Consult 12/23 Dr. Pérez states " gram negative bacteremia, sepsis and lactic acidosis". WBC on admission: 8.1 Lactic acid: 3.3 - 2.2 - 2.1 Blood cultures: Positive Escherichia coli Vitals signs on admission: T 98.3, P 96, R 18, 105/65, 97% RA Temp. running 97.2 - 100.0, heart rate 73 - 123, R. 16-24 Treatment: ID Consult: Dr Pérez Antibiotics: Ampicillin IVPB, Meropenem IVPB, Piperacillin IVPB IV Bolus: .9 1000ml x 3 In your professional opinion, please clarify if these findings signify one of the following conditions, whether the condition is POA, and cause, if known: Condition Sepsis ruled in Sepsis ruled out Other, please specify Unable to determine Present on Admission: Yes No MTDD
--- NOTE | 2017-12-31 08:20 | CDI ---
Last Revision, February 2017 Documentation Clarification Form Date: 12/24/2017 9:54:00 AM From: Surekha Milan RN Admit Date: 12/22/2017 9:04:00 AM Patient Name: Cy Vicente Visit Number: [id number] Discharge Date: 12/25/17 ATTENTION: The Clinical Documentation Specialists (CDI) and [facility] Coding Staff appreciate your assistance in clarifying documentation. Please respond to the clarification below the line at the bottom and electronically sign. The CDI & [facility] Coding staff will review the response and follow-up if needed. Please note: Queries are made part of the Legal Health Record. If you have any questions, please contact the author of this message via ITS. Saul Anderson MD, Can you please render your opinion on the following documentation? History/Risk Factors: a fib, ear cancer, hyperlipidemia, pneumonia, pacer, cardiac valve replacement Clinical Indicators: Consult 12/23 Dr. Pérez states " gram negative bacteremia, sepsis and lactic acidosis". WBC on admission: 8.1 Lactic acid: 3.3 - 2.2 - 2.1 Blood cultures: Positive Escherichia coli Vitals signs on admission: T 98.3, P 96, R 18, 105/65, 97% RA Temp. running 97.2 - 100.0, heart rate 73 - 123, R. 16-24 Treatment: ID Consult: Dr Pérez Antibiotics: Ampicillin IVPB, Meropenem IVPB, Piperacillin IVPB IV Bolus: .9 1000ml x 3 In your professional opinion, please clarify if these findings signify one of the following conditions, whether the condition is POA, and cause, if known: Condition Sepsis ruled in Sepsis ruled out Other, please specify Unable to determine Present on Admission: Yes No MTDD
== END 2017-12-25 14:23 | disposition short-term general hospital (02) | DRG 871 ==
LOC: EC 05:36 → 4MS4W 07:52 → OBSVTOIN 09:04
PROVIDERS: ADMIT Internal Medicine; ATTEND Internal Medicine
DX: A41.51 Sepsis due to Escherichia coli [E. coli] (principal); K85.10 Biliary acute pancreatitis without necrosis or infection; E87.2 Acidosis; I42.8 Other cardiomyopathies; I44.2 Atrioventricular block, complete; K82.1 Hydrops of gallbladder; K80.20 Calculus of gallbladder without cholecystitis without obstruction; B96.20 Unspecified Escherichia coli [E. coli] as the cause of diseases classified elsewhere; E78.5 Hyperlipidemia, unspecified; E87.70 Fluid overload, unspecified; I10 Essential (primary) hypertension; I35.0 Nonrheumatic aortic (valve) stenosis; I48.0 Paroxysmal atrial fibrillation; K21.9 Gastro-esophageal reflux disease without esophagitis; K76.0 Fatty (change of) liver, not elsewhere classified; N40.0 Benign prostatic hyperplasia without lower urinary tract symptoms; Z79.01 Long term (current) use of anticoagulants; Z79.899 Other long term (current) drug therapy; Z82.5 Family history of asthma and other chronic lower respiratory diseases; Z95.810 Presence of automatic (implantable) cardiac defibrillator; Z95.2 Presence of prosthetic heart valve; M54.5 Low back pain; G89.29 Other chronic pain; Z82.49 Family history of ischemic heart disease and other diseases of the circulatory system; Z88.5 Allergy status to narcotic agent; Z53.09 Procedure and treatment not carried out because of other contraindication; I95.9 Hypotension, unspecified; Z87.01 Personal history of pneumonia (recurrent); Z85.828 Personal history of other malignant neoplasm of skin
CPT/HCPCS: 36415; 71046; 74022; 74177; 76705; 80053; 80074; 81001; 82150; 82272; 83605; 83690; 84484; 85025; 85610; 85730; 87040; 87077; 87186; 93306; 96361; 96365; 96375; 99285

== ENCOUNTER → 2021-11-28 | Outpatient (CLI) | payer MEDICARE ==
--- NOTE | 2021-11-30 07:57 | XR ---
EXAMINATION TYPE: XR chest 2V DATE OF EXAM: 11/28/2021 COMPARISON: NONE HISTORY: Shortness of breath TECHNIQUE: Frontal and lateral views of the chest are obtained. FINDINGS: Scattered senescent parenchymal changes noted. Hyperinflation compatible with COPD. No evidence for infiltrate. No evidence for atelectasis. Heart size is stable. Mediastinal structures are stable and grossly unremarkable. No evidence for hilar prominence. Degenerative changes dorsal spine. IMPRESSION: 1. No evidence for acute pulmonary disease.
== END | disposition home or self-care (01) ==
LOC: RADXRMAIN 09:39
PROVIDERS: ATTEND Internal Medicine Geriatric Medicine
DX: J18.9 Pneumonia, unspecified organism (principal)
CPT/HCPCS: 71046